=== PATIENT | female | born 1940 | race Caucasian/White ===

== ENCOUNTER 2017-11-02 21:28 | Observation (INO) | payer MEDICARE, OTHER ==
[~2017-11-02] VITALS: Ht 162.6 cm; Wt 124.0 kg
[~2017-11-02 21:28] MED LIST: ALLO100 PO; AMLO10 PO; ASPI81EC PO; Atrovent Inha12.9 GM INH; CHOL10002 PO; CLON.5 PO; COLE1 PO; COLE625 PO; CYAN1000I PO; CYCL10 PO; FEBU40TA PO; FENO160 PO; FURO40 PO; HYDACE5 PO; HYDCHL25 PO; LEVSOD50 PO; LIVALO4 MG PO; METF500 PO; Metoprolol Tar100 MG PO; NAPR500 PO; NAPR550 PO; Norco 5-325 Ta1 EACH PO; Omeprazole20 M1 PO; PIOG30 PO; POTASSIUM ER PO; POTCHL20ER PO; SITA100T2 PO; TRAZ50 PO; UBID100 PO; Zestril40 MG PO; [UNRECOGNIZED DRUG - OTHER] PO
[2017-11-02 22:42] LABS: BASOPHILS ABSOLUTE AUTO 0.05 K/mm3 (0.00-0.23); BASOPHILS PERCENT AUTO 1 % (0-2); EOSINOPHILS ABSOLUTE AUTO 0.17 K/mm3 (0.00-0.68); EOSINOPHILS PERCENT AUTO 3 % (0-6); Hematocrit 40.7 % (33.0-51.0); Hemoglobin 13.1 g/dL (11.5-16.0); IMMATURE GRAN ABSOLUTE AUTO 0.02 K/mm3 (0.00-0.10); IMMATURE GRAN PERCENT AUTO 0 % (0-1); LYMPHOCYTES ABSOLUTE AUTO 1.44 K/mm3 (0.84-5.20); LYMPHOCYTES PERCENT AUTO 25 % (21-46); MONOCYTES ABSOLUTE AUTO 0.41 K/mm3 (0.16-1.47); MONOCYTES PERCENT AUTO 7 % (4-13); Mean Corpuscular HGB 29.4 pg (26.0-34.0); Mean Corpuscular HGB Conc 32.2 g/dL (31.5-36.5); Mean Corpuscular Volume 92 fL (80-100); Mean Platelet Volume 10.8 fL (9.1-12.4); NEUTROPHILS PERCENT AUTO 63 % (41-73); Platelet Count 238 K/mm3 (150-400); RDW Coefficient Variation 12.9 % (11.7-14.2); RDW Standard Deviation 43.2 fL (35.1-46.3); Red Blood Cell Count 4.45 M/mm3 (3.80-5.20); White Blood Cell Count 5.69 K/mm3 (4.00-11.30)
[2017-11-02 22:54] LABS: Alanine Aminotransfer (ALT/SGP 22 U/L (12-78); Albumin, Blood 4.1 g/dL (3.4-5.0); Albumin/Globulin Ratio 1.1 (0.8-1.8); Alk Phos 66 U/L (50-136); Anion Gap 10 mmol/L (6-16); Aspartate Aminotrans (AST/SGOT 22 U/L (12-37); Bilirubin, Total 0.4 mg/dL (0.1-1.0); Blood Urea Nitrogen 13 mg/dL (8-24); Bun/Creatinine Ratio 23.3 (12.0-20.0); CO2, Blood 26 mmol/L (21-32); Calcium, Blood 9.4 mg/dL (8.5-10.1); Chloride, Blood 101 mmol/L (98-108); Creatinine, Blood 0.56 mg/dL (0.40-1.00); Globulin, Blood 3.9 g/dL (2.2-4.0); Glomerular Filtration Rate >60 (60-); Glucose, Blood 160 mg/dL (70-99); Potassium, Blood 3.8 mmol/L (3.5-5.5); Sodium, Blood 137 mmol/L (136-145)
[2017-11-03 03:30] LABS: Source, Urine Clean Catch
[2017-11-03 03:31] LABS: Bilirubin, Urine Neg (Neg); Blood, Urine Neg (Neg); Glucose Qualitative, Urine Neg (Neg); Ketones, Urine Neg (Neg); Leukocyte Esterase, Urine Neg (Neg); Nitrite, Urine Neg (Neg); Protein, Urine Neg (Neg); Urobilinogen, Urine NORM (Normal)
[2017-11-03 03:39] LABS: Appearance, Urine Clear (Clear); Color, Urine Yellow (P-Yellow)
[2017-11-03] MEDS ORDERED: ESCI10 PO (04:33)
[2017-11-03] MEDS ORDERED: Verotin-Gr Cap1 EACH PO (04:33)
[2017-11-03] MEDS ORDERED: CHOL10002 PO (04:34)
[2017-11-03] MEDS ORDERED: Fish Oil 10001000 MG PO (04:34)
[2017-11-03] MEDS ORDERED: UBID100 PO (04:35)
[2017-11-03] MEDS ORDERED: PROBIOTIC1 EAC6 PO (04:36)
[2017-11-03] MEDS ORDERED: GLUC500 PO (04:36)
[2017-11-03] MEDS ORDERED: GNP CALCIUM PO (04:37)
[2017-11-03 04:58] LABS: BASOPHILS ABSOLUTE AUTO 0.03 K/mm3 (0.00-0.23); BASOPHILS PERCENT AUTO 1 % (0-2); EOSINOPHILS ABSOLUTE AUTO 0.06 K/mm3 (0.00-0.68); EOSINOPHILS PERCENT AUTO 1 % (0-6); Hematocrit 39.6 % (33.0-51.0); Hemoglobin 12.9 g/dL (11.5-16.0); IMMATURE GRAN ABSOLUTE AUTO 0.02 K/mm3 (0.00-0.10); IMMATURE GRAN PERCENT AUTO 0 % (0-1); LYMPHOCYTES ABSOLUTE AUTO 1.21 K/mm3 (0.84-5.20); LYMPHOCYTES PERCENT AUTO 19 % (21-46); MONOCYTES ABSOLUTE AUTO 0.38 K/mm3 (0.16-1.47); MONOCYTES PERCENT AUTO 6 % (4-13); Mean Corpuscular HGB 29.6 pg (26.0-34.0); Mean Corpuscular HGB Conc 32.6 g/dL (31.5-36.5); Mean Corpuscular Volume 91 fL (80-100); Mean Platelet Volume 10.8 fL (9.1-12.4); NEUTROPHILS ABSOLUTE AUTO 4.57 K/mm3 (1.96-9.15); NEUTROPHILS PERCENT AUTO 73 % (41-73); Platelet Count 232 K/mm3 (150-400); RDW Coefficient Variation 12.8 % (11.7-14.2); RDW Standard Deviation 42.5 fL (35.1-46.3); Red Blood Cell Count 4.36 M/mm3 (3.80-5.20); White Blood Cell Count 6.27 K/mm3 (4.00-11.30)
[2017-11-03 05:16] LABS: Alanine Aminotransfer (ALT/SGP 22 U/L (12-78); Albumin/Globulin Ratio 1.1 (0.8-1.8); Alk Phos 64 U/L (50-136); Anion Gap 10 mmol/L (6-16); Aspartate Aminotrans (AST/SGOT 19 U/L (12-37); Bilirubin, Total 0.5 mg/dL (0.1-1.0); Blood Urea Nitrogen 13 mg/dL (8-24); Bun/Creatinine Ratio 21.9 (12.0-20.0); CO2, Blood 26 mmol/L (21-32); Calcium, Blood 9.4 mg/dL (8.5-10.1); Chloride, Blood 99 mmol/L (98-108); Creatinine, Blood 0.59 mg/dL (0.40-1.00); Globulin, Blood 3.7 g/dL (2.2-4.0); Glomerular Filtration Rate >60 (60-); Glucose, Blood 124 mg/dL (70-99); Potassium, Blood 4.1 mmol/L (3.5-5.5); Sodium, Blood 135 mmol/L (136-145); Total Protein, Blood 7.7 g/dL (6.4-8.2)
[2017-11-03] MEDS ORDERED: HYDMOR2 PO (17:15)
== END 2017-11-03 17:30 | disposition home or self-care (01) ==
LOC: ER 21:28 → MEDS 21:29 → ER 11-03 02:29 → MEDS 11-03 04:21 → ENPENDDIS 11-03 17:12 → MEDS 11-03 17:30
PROVIDERS: Emergency Medicine; Internal Medicine
DX: M25.561 Pain in right knee (principal); M54.5 Low back pain; G89.29 Other chronic pain; I10 Essential (primary) hypertension; E11.9 Type 2 diabetes mellitus without complications; E78.5 Hyperlipidemia, unspecified; E03.9 Hypothyroidism, unspecified; Z86.73 Personal history of transient ischemic attack (TIA), and cerebral infarction without residual deficits; Z79.899 Other long term (current) drug therapy; Z88.8 Allergy status to other drugs, medicaments and biological substances; Z90.49 Acquired absence of other specified parts of digestive tract; Z87.891 Personal history of nicotine dependence; Z79.82 Long term (current) use of aspirin; Z79.52 Long term (current) use of systemic steroids
CPT/HCPCS: 36415; 73502; 73562-RT; 80053; 81000; 81003; 82947; 85025; 93005; 93010; 93971; 94660; 94762; 96372; 96374; 96375; 96376; 99285; G0378; J1170; J1650; J1885; J2405; J2550; J3010; J3360

== ENCOUNTER → 2019-06-16 | Outpatient (CLI) | payer MEDICARE ==
[~2019-06-16] MED LIST changes: +ESCI10 PO; +Fish Oil 10001000 MG PO; +GLUC500 PO; +GNP CALCIUM PO; +HYDMOR2 PO; +PROBIOTIC1 EAC6 PO; +Verotin-Gr Cap1 EACH PO
[2019-06-16 22:11] LABS: Adenovirus F 40/41 Not Detected (NOT DETECT); Astrovirus Not Detected (NOT DETECT); Campylobacter Sp Not Detected (NOT DETECT); Cryptosporidium Not Detected (NOT DETECT); Cyclospora Cayetanensis Not Detected (NOT DETECT); E. Coli O157 Not Detected (NOT DETECT); Entamoeba Histolytica Not Detected (NOT DETECT); Enteroaggregative E. coli-EAEC Not Detected (NOT DETECT); Enteropathogenic E. coli-EPEC Not Detected (NOT DETECT); Enterotoxigenic E. coli-ETEC Not Detected (NOT DETECT); Giardia Lamblia Not Detected (NOT DETECT); Norovirus GI/GII Not Detected (NOT DETECT); Plesiomonas Shigelloides Not Detected (NOT DETECT); Rotavirus A Not Detected (NOT DETECT); Salmonella Sp Not Detected (NOT DETECT); Sapovirus Not Detected (NOT DETECT); Shiga Toxin-prod E. coli-STEC Not Detected (NOT DETECT); Shigella/Enteroin E. coli-EIEC Not Detected (NOT DETECT); Vibrio Cholerae Not Detected (NOT DETECT); Vibrio Sp Not Detected (NOT DETECT); Yersinia Enterocolitica Not Detected (NOT DETECT)
== END | disposition home or self-care (01) ==
LOC: LAB EV 02:02
PROVIDERS: Internal Medicine Gastroenterology
DX: R19.7 Diarrhea, unspecified (principal)
CPT/HCPCS: 0097U

== ENCOUNTER → 2021-06-24 | Outpatient (CLI) | payer MEDICARE ==
[2021-06-24 17:46] LABS: BASOPHILS ABSOLUTE AUTO 0.04 K/mm3 (0.00-0.23); BASOPHILS PERCENT AUTO 1 % (0-2); EOSINOPHILS ABSOLUTE AUTO 0.14 K/mm3 (0.00-0.68); EOSINOPHILS PERCENT AUTO 2 % (0-6); Hematocrit 33.1 % (33.0-51.0); Hemoglobin 10.4 g/dL (11.5-16.0); IMMATURE GRAN ABSOLUTE AUTO 0.04 K/mm3 (0.00-0.10); IMMATURE GRAN PERCENT AUTO 1 % (0-1); LYMPHOCYTES ABSOLUTE AUTO 1.48 K/mm3 (0.84-5.20); LYMPHOCYTES PERCENT AUTO 23 % (21-46); MONOCYTES ABSOLUTE AUTO 0.61 K/mm3 (0.16-1.47); MONOCYTES PERCENT AUTO 9 % (4-13); Mean Corpuscular HGB 29.6 pg (26.0-34.0); Mean Corpuscular HGB Conc 31.4 g/dL (31.5-36.5); Mean Corpuscular Volume 94 fL (80-100); Mean Platelet Volume 10.2 fL (9.1-12.4); NEUTROPHILS ABSOLUTE AUTO 4.28 K/mm3 (1.96-9.15); NEUTROPHILS PERCENT AUTO 65 % (41-73); Platelet Count 356 K/mm3 (150-400); RDW Standard Deviation 51.2 fL (35.1-46.3); Red Blood Cell Count 3.51 M/mm3 (3.80-5.20); White Blood Cell Count 6.59 K/mm3 (4.00-11.30)
== END | disposition home or self-care (01) ==
LOC: LAB 17:41 → LAB SHORT 17:41
PROVIDERS: Physician Assistant
DX: K92.1 Melena (principal)
CPT/HCPCS: 85025

== ENCOUNTER → 2021-06-26 | Outpatient (CLI) | payer MEDICARE ==
[2021-06-26 15:40] LABS: Hematocrit 32.1 % (33.0-51.0); Hemoglobin 10.2 g/dL (11.5-16.0)
== END ==
LOC: LAB SHORT 15:36
PROVIDERS: Chiropractor
DX: K92.1 Melena (principal); Z88.8 Allergy status to other drugs, medicaments and biological substances
CPT/HCPCS: 85014; 85018

== ENCOUNTER → 2023-11-23 | Outpatient (CLI) | payer MEDICARE ==
[~2023-11-23] MED LIST changes: +ACET325; +ALEN70; +ALLO100; +AMLO10; +ATOR40TA; +Aspir 8181 MG; +CATAPRES-TTS 21 EAC1; +CLONAZEPAM0.5 MG; +COLE625; +DICLOFENAC SOD100 G1; +ESCI10; +FERSU300; +FURO40; +HYDCHL25; +LEVSOD75; +METO50; +MULVITA; +Norco 5-325 Ta1 EACH; +OMEP20ER; +Oxybutynin Chlo15 MG; +PIOG30; +POTA10T; +SITA100T2; +TRAZ100; +ZESTRIL40 M2
[2023-11-25 12:19] LABS: Stool Occult Bld Immuno 1 Positive (NEGATIVE)
== END | disposition home or self-care (01) ==
LOC: LAB SHORT 22:30
PROVIDERS: Family Medicine
DX: Z12.11 Encounter for screening for malignant neoplasm of colon (principal)
CPT/HCPCS: G0328

== ENCOUNTER 2025-02-20 13:58 | Inpatient (IN) | payer MEDICARE ==
[~2025-02-20] VITALS: Ht 162.6 cm; Wt 107.0 kg
[~2025-02-20 13:58] MED LIST changes: -ALLO100; -AMLO10; -ATOR40TA; +ATOR80 PO; -CLONAZEPAM0.5 MG; +CLONAZEPAM0.5 MG PO; -COLE625; -ESCI10; -FURO40; -Oxybutynin Chlo15 MG; +Oxybutynin Chlo15 MG PO; -PIOG30; -ZESTRIL40 M2; +ZESTRIL40 M2 PO
[2025-02-20 14:21] VITALS: BP 139/119
[2025-02-20] MEDS ORDERED: Ondansetron 4 MG TAB PO PRN (14:25)
[2025-02-20] MEDS ORDERED: Furosemide 10 MG/ML 4ML Vial IV SCH (15:00)
[2025-02-20] MEDS ORDERED: ELIQUIS5 M2 PO (15:02)
[2025-02-20] MEDS ORDERED: LEVOTHYROXINE100 M10 PO (15:05)
[2025-02-20] MEDS ORDERED: METO100ER PO (15:07)
[2025-02-20] MEDS ORDERED: TIOT18 INH (15:09)
[2025-02-20 15:20] LABS: BASOPHILS ABSOLUTE AUTO 0.04 K/mm3 (0.00-0.23); BASOPHILS PERCENT AUTO 0 % (0-2); EOSINOPHILS ABSOLUTE AUTO 0.01 K/mm3 (0.00-0.68); EOSINOPHILS PERCENT AUTO 0 % (0-6); Hematocrit 45.8 % (33.0-51.0); Hemoglobin 14.2 g/dL (11.5-16.0); IMMATURE GRAN ABSOLUTE AUTO 0.04 K/mm3 (0.00-0.10); IMMATURE GRAN PERCENT AUTO 0 % (0-1); LYMPHOCYTES ABSOLUTE AUTO 0.68 K/mm3 (0.84-5.20); LYMPHOCYTES PERCENT AUTO 8 % (21-46); MONOCYTES ABSOLUTE AUTO 1.09 K/mm3 (0.16-1.47); MONOCYTES PERCENT AUTO 12 % (4-13); Mean Corpuscular HGB 27.1 pg (26.0-34.0); Mean Corpuscular Volume 87 fL (80-100); Mean Platelet Volume 11.2 fL (9.1-12.4); NEUTROPHILS ABSOLUTE AUTO 7.25 K/mm3 (1.96-9.15); NEUTROPHILS PERCENT AUTO 80 % (41-73); Platelet Count 213 K/mm3 (150-400); RDW Coefficient Variation 18.8 % (11.7-14.2); RDW Standard Deviation 59.2 fL (35.1-46.3); Red Blood Cell Count 5.24 M/mm3 (3.80-5.20); White Blood Cell Count 9.11 K/mm3 (4.00-11.30)
[2025-02-20 15:27] VITALS: BP 133/105
[2025-02-20 16:03] LABS: Albumin, Blood 2.6 g/dL (3.4-5.0); Albumin/Globulin Ratio 0.6 (0.8-1.8); Bilirubin, Total 1.5 mg/dL (0.1-1.0); Bun/Creatinine Ratio 30.4 (12.0-20.0); Calcium, Blood 8.7 mg/dL (8.5-10.1); Creatinine, Blood 0.56 mg/dL (0.40-1.00); Globulin, Blood 4.4 g/dL (2.2-4.0); Magnesium, Blood 1.5 mg/dL (1.6-2.4); Potassium, Blood 3.6 mmol/L (3.5-5.5); Thyroid Stimulating Hormone 7.53 uIU/mL (0.360-4.800)
--- NOTE | 2025-02-20 16:56 | NUR ---
ADMISSION NOTE PATIENT ARRIVED TO UNIT DIRECT ADMIT WITH ANASARCA. PATIENT'S SON, JUAN, ASSISTED PATIENT TO BED FROM WHEELCHAIR. PATIENT FOUL-SMELLING WITH POOR HYGIENE. INCONTINENT OF BOWEL AND BLADDER WITH TWO BRIEFS IN PLACE UPON ARRIVAL BOTH SATURATED. DRIED BOWEL MOVEMENT FOUND TO PATIENT'S PANNUS, GROIN, AND BILATERAL LOWER EXTREMITIES. SKIN ASSESSMENT COMPLETED AND STAGE 2 PRESSURE INJURY FOUND TO COCCYX AND MACERATION AND MULTIPLE OPEN WOUNDS TO PERINEAL AREA DUE TO MOISTURE. SCATTERED ABRASIONS T/O, ABRASIONS TO LEFT SIDED ABDOMEN AND FACE. DR. CHERRY NOTIFIED OF PRESSURE INJURY. THIS RN CONCERNED WITH PATIENT'S ABILITY TO TAKE CARE OF HERSELF AT HOME, PATIENT LIVES ALONE. IV PLACED BY BREAK NURSE TO RIGHT FA, DIFFICULTY OBTAINING IV TO PATIENT UPON ARRIVAL. IV LASIX ADMINISTERED LATE DUE TO DIFFICULTY OBTAINING IV. PATIENT'S GRANDDAUGHTER AT BEDSIDE CURRENTLY. NO OTHER CONCERNS AT THIS TIME.
[2025-02-20 19:17] VITALS: BP 126/81
[2025-02-20] MEDS ORDERED: ZINC OXIDE/PETROLATUM, YELLOW 1 APPLIC/71 GM PASTE TOP SCH (21:00)
--- NOTE | 2025-02-21 04:04 | NUR ---
SHIFT SUMMARY NO ACUTE EVENTS DURING THIS SHIFT. PT IS A/O X4, PLEASANT AND COOPERATIVE WITH CARE. PUREWICK WAS ADMINISTERED DURING THIS SHIFT D/T REDDNESS AND MOISTURE IN AVRIL AREA. STAGE II PRESSURE INJURY @ COCCYX AREA. MEPILEX PLACED ON COCCYX, CHET OINTMENT AND BABY POWDER ADMINISTERED TO AVRIL AREA. LEFT HIP HAS A C/D/I ABD PAD SECURED WITH A TAPE PER PREVIOUS SHIFT RN. PICTURES IN THE CHART. PT'S FACE IS REDDENED, BLOTCHY WITH DRY SKIN. PANNUS AND GROIN ALSO REDDENED. INCONTINENT OF BOWEL AND URINE. ATTENDS IN PLACE. BED AT THE LOWEST POSITION, CALL LIGHT W/I REACH. PT IS ABLE TO MAKE HER NEEDS KNOWN. EDUCATED LOBBY CONCIERGE LIGHT. BED ALARM FOR SAFETY.
[2025-02-21 04:25] VITALS: BP 121/90
[2025-02-21 04:42] LABS: BASOPHILS ABSOLUTE AUTO 0.03 K/mm3 (0.00-0.23); BASOPHILS PERCENT AUTO 0 % (0-2); EOSINOPHILS ABSOLUTE AUTO 0.05 K/mm3 (0.00-0.68); EOSINOPHILS PERCENT AUTO 1 % (0-6); Hematocrit 38.4 % (33.0-51.0); Hemoglobin 12.1 g/dL (11.5-16.0); IMMATURE GRAN ABSOLUTE AUTO 0.03 K/mm3 (0.00-0.10); IMMATURE GRAN PERCENT AUTO 0 % (0-1); LYMPHOCYTES PERCENT AUTO 15 % (21-46); MONOCYTES ABSOLUTE AUTO 0.92 K/mm3 (0.16-1.47); MONOCYTES PERCENT AUTO 14 % (4-13); Mean Corpuscular HGB 27.3 pg (26.0-34.0); Mean Corpuscular HGB Conc 31.5 g/dL (31.5-36.5); Mean Corpuscular Volume 87 fL (80-100); Mean Platelet Volume 11.6 fL (9.1-12.4); NEUTROPHILS ABSOLUTE AUTO 4.67 K/mm3 (1.96-9.15); NEUTROPHILS PERCENT AUTO 70 % (41-73); Platelet Count 197 K/mm3 (150-400); RDW Coefficient Variation 18.8 % (11.7-14.2); Red Blood Cell Count 4.44 M/mm3 (3.80-5.20)
[2025-02-21 05:04] LABS: Alanine Aminotransfer (ALT/SGP 11 U/L (12-78); Albumin, Blood 2.2 g/dL (3.4-5.0); Albumin/Globulin Ratio 0.6 (0.8-1.8); Alk Phos 116 U/L (50-136); Anion Gap 5 mmol/L (3-11); Aspartate Aminotrans (AST/SGOT 17 U/L (12-37); Bilirubin, Total 1.3 mg/dL (0.1-1.0); Blood Urea Nitrogen 15 mg/dL (8-24); Bun/Creatinine Ratio 22.8 (12.0-20.0); CO2, Blood 32 mmol/L (21-32); Calcium, Blood 8.4 mg/dL (8.5-10.1); Chloride, Blood 103 mmol/L (98-108); Cholesterol 75 mg/dL (50-200); Creatinine, Blood 0.66 mg/dL (0.40-1.00); Globulin, Blood 3.4 g/dL (2.2-4.0); Glomerular Filtration Rate 86 (60-); Glucose, Blood 89 mg/dL (70-99); HDL Cholesterol 38 mg/dL (>39); LDL/HDL RATIO 0.6; Low Density Lipoprotein Chol 22 mg/dL (0-110); Magnesium, Blood 1.3 mg/dL (1.6-2.4); Potassium, Blood 3.2 mmol/L (3.5-5.5); Sodium, Blood 137 mmol/L (136-145); Total Protein, Blood 5.6 g/dL (6.4-8.2); Triglycerides 75 mg/dL (30-160); Very Low Density Lipoprot Chol 15 mg/dL (6-32)
[2025-02-21 07:29] VITALS: BP 142/103
[2025-02-21] MEDS ORDERED: Enoxaparin 40 MG/0.4 ML SYR SC SCH ×2 (09:00)
[2025-02-21] MEDS ORDERED: Potassium Chloride 20 MEQ TabCR PO SCH (09:35)
[2025-02-21] MEDS ORDERED: Arginine/Glutamine/Calcium Hmb 1 Packet PO SCH (11:55)
[2025-02-21 15:08] VITALS: BP 118/76
--- NOTE | 2025-02-21 18:36 | NUR ---
SHIFT SUMMARY PT AOX3/4, COOPERATIVE, ABLE TO MAKE NEEDS KNOWN. PT HAS BEEN BEDREST FOR DURATION OF SHIFT. 4+ PITTING EDEMA LOWER EXTREMITIES. ON 2000ML FLUID RESTICTION, LICENSED FUNERAL DIRECTOR CHARTING SHOULD REFLECT. ON 3/4 L O2 CURRENLTY. TAKES MEDS WHOLE WITH FLUIDS. BED IN LOWEST POSITION, CALL LIGHT WITHIN REACH.
[2025-02-21 20:26] VITALS: BP 127/114
[2025-02-21 20:31] VITALS: BP 116/82
[2025-02-22 03:02] VITALS: BP 119/94
--- NOTE | 2025-02-22 04:47 | NUR ---
SHIFT SUMMARY: ASSUMED CARE AT 0030 FROM MARY ANN OLIVA. AOX4. VSS. PT IS BEDBOUND, USING PUREWICK FOR INCONTINENCE. +4 EDEMA NOTED TO BLE. WOUND DRESSING TO L HIP. ABRASION TO R HIP COVERED BY A MEPILEX. STAGE 2 PRESSURE ULCER TO COCCYX COVERED WITH A MEPILEX. REDNESS TO PERIAREA, APPLIED BARRIER CREAM AND POWDER. CALL LIGHT IS WITHIN REACH. BED IS LOW AND LOCKED.
[2025-02-22 05:02] LABS: Albumin, Blood 2.5 g/dL (3.4-5.0); Albumin/Globulin Ratio 0.7 (0.8-1.8); Bilirubin, Total 1.2 mg/dL (0.1-1.0); Bun/Creatinine Ratio 26.1 (12.0-20.0); Calcium, Blood 8.5 mg/dL (8.5-10.1); Creatinine, Blood 0.77 mg/dL (0.40-1.00); Globulin, Blood 3.8 g/dL (2.2-4.0); Magnesium, Blood 1.2 mg/dL (1.6-2.4); Total Protein, Blood 6.3 g/dL (6.4-8.2)
[2025-02-22] MEDS ORDERED: Tiotropium Bromide 2.5 MCG/ACT MIST INHAL (10 ACT/4 GM) INH SCH (07:00)
[2025-02-22] MEDS ORDERED: Magnesium Sulf 2 GM/Water 50ML 50 ML IV ONE (07:15)
[2025-02-22 07:47] LABS: Bun/Creatinine Ratio 24.9 (12.0-20.0); Calcium, Blood 8.8 mg/dL (8.5-10.1); Creatinine, Blood 0.76 mg/dL (0.40-1.00)
[2025-02-22 07:49] VITALS: BP 129/109
[2025-02-22] MEDS ORDERED: NS 250 ML IV PRN (08:15)
[2025-02-22 08:31] VITALS: BP 126/98
[2025-02-22] MEDS ORDERED: Apixaban 5 MG Tab PO SCH (09:00)
[2025-02-22] MEDS ORDERED: Pioglitazone HCl 15 MG Tab PO SCH (09:00)
[2025-02-22] MEDS ORDERED: Allopurinol 100 MG Tab PO SCH (09:00)
[2025-02-22] MEDS ORDERED: Citalopram Hydrobromide 20 MG Tab PO SCH (09:00)
[2025-02-22] MEDS ORDERED: Zinc Oxide Ointment 30 GM TOP SCH (09:00)
--- NOTE | 2025-02-22 14:15 | NUR ---
SHIFT SUMMARY- PT ALERT AND ORIENTED, POOR HISTORIAN. SHE HAS INCREASED WEAKNESS AND SKIN IRRITATION T/O AVRIL AREA D/T INCONTINENCE OF B/B. PT IS IN BED, CALL LIGT IN REACH NO S&S OF DISTRESS NOTED. PT IS WORKING WITH PHYSICAL THERAPY AT THIS TIME. WILL PASS ON IN REPORT TO MIRANDA KWONG.
--- NOTE | 2025-02-22 15:34 | NUR ---
SHIFT SUMMARY: PATIENT IS A&OX4 ON 4 LITERS NASAL CANNULA. PATIENT IS 2 PERSON SIT TO STAND, UNABLE TO PIVOT TRANSFER, NO BEDSIDE COOMODE AT THIS TIME DUE TO WEAKNESS, ABLE TO SIT ON EDGE OF BED PER THERAPY, ANALYTICS LEADER'S TRANSFERED TO BEDSIDE COMMODE FOR BM AFTER BED BATH. MEPILEX CHANGED ON COCCYX, BANDAGE CHANGED ON LEFT HIP. PATIENT IS CURRENTLY SLEEPING IN BED, NO REPORTS OF CHEST PAIN OR DISCOMFORT, BREATHING IS NORMAL AND NOT LABORED. CALL LIGHT IN PLACE.
[2025-02-22 15:43] VITALS: BP 107/85
[2025-02-22] MEDS ORDERED: BREO ELLIPTA 21 EAC1 INH (16:54)
[2025-02-22] MEDS ORDERED: Atorvastatin 40 MG Tab PO SCH (18:00)
--- NOTE | 2025-02-22 19:28 | NUR ---
ASSUMED CARE OF PT FROM SHONA Dunn. A/O NO C/O PAIN DRESSINGS TO BACK AND HIP CHANGED AND ARE NOW C/D/I. PT WAS ASSISTED TO BSC AND JASON WELL. STUDENT TO ASSIST IN CARE. CALL LIGHT WITHIN REACH.
[2025-02-22 20:17] VITALS: BP 118/77
[2025-02-23 03:02] VITALS: BP 105/86
[2025-02-23 04:47] LABS: BASOPHILS ABSOLUTE AUTO 0.03 K/mm3 (0.00-0.23); BASOPHILS PERCENT AUTO 1 % (0-2); EOSINOPHILS PERCENT AUTO 2 % (0-6); Hematocrit 38.1 % (33.0-51.0); Hemoglobin 12.5 g/dL (11.5-16.0); IMMATURE GRAN ABSOLUTE AUTO 0.03 K/mm3 (0.00-0.10); IMMATURE GRAN PERCENT AUTO 1 % (0-1); LYMPHOCYTES ABSOLUTE AUTO 1.26 K/mm3 (0.84-5.20); LYMPHOCYTES PERCENT AUTO 21 % (21-46); MONOCYTES ABSOLUTE AUTO 0.96 K/mm3 (0.16-1.47); MONOCYTES PERCENT AUTO 16 % (4-13); Mean Corpuscular HGB 27.5 pg (26.0-34.0); Mean Corpuscular HGB Conc 32.8 g/dL (31.5-36.5); Mean Corpuscular Volume 84 fL (80-100); Mean Platelet Volume 10.9 fL (9.1-12.4); NEUTROPHILS PERCENT AUTO 60 % (41-73); Platelet Count 229 K/mm3 (150-400); RDW Coefficient Variation 18.6 % (11.7-14.2); RDW Standard Deviation 56.7 fL (35.1-46.3); Red Blood Cell Count 4.55 M/mm3 (3.80-5.20); White Blood Cell Count 5.88 K/mm3 (4.00-11.30)
[2025-02-23 05:08] LABS: Albumin, Blood 2.4 g/dL (3.4-5.0); Albumin/Globulin Ratio 0.7 (0.8-1.8); Bun/Creatinine Ratio 36.5 (12.0-20.0); Creatinine, Blood 0.68 mg/dL (0.40-1.00); Globulin, Blood 3.6 g/dL (2.2-4.0); Magnesium, Blood 1.5 mg/dL (1.6-2.4); Potassium, Blood 3.7 mmol/L (3.5-5.5)
[2025-02-23] MEDS ORDERED: Levothyroxine Sodium 0.1 MG Tab PO SCH (06:00)
--- NOTE | 2025-02-23 06:18 | NUR ---
SHIFT SUMMARY PT SLEPT INTERMITTENTLY DURING THE NIGHT. PUREWICK REMOVED DUE TO INCONT SMALL LOOSE STOOL. MEPELEX INTACT TO COCCYX AND DRESSING INTACT TO LEFT HIP. PERIAREA REMAINS REDENNED, CREAM AND POWDER APPLIED NEEDED. PT REPOSITIONED THROUGH THE NIGHT. EDEMA CONTINUES- 4+PE L[facility] CHIEF EXECUTIVE OFFICER GENERALIZED EDEMA. BED IN LOWEST POSITION, CALL LIGHT WITHIN REACH, SIDERAILS UP X3.
[2025-02-23 08:08] VITALS: BP 113/89
[2025-02-23 16:29] VITALS: BP 104/89
--- NOTE | 2025-02-23 17:39 | NUR ---
NO CHANGES FOR PT
[2025-02-23 19:47] VITALS: BP 109/73
[2025-02-24 02:32] VITALS: BP 120/96
[2025-02-24 04:52] LABS: BASOPHILS ABSOLUTE AUTO 0.02 K/mm3 (0.00-0.23); BASOPHILS PERCENT AUTO 0 % (0-2); EOSINOPHILS ABSOLUTE AUTO 0.09 K/mm3 (0.00-0.68); EOSINOPHILS PERCENT AUTO 2 % (0-6); Hematocrit 36.2 % (33.0-51.0); Hemoglobin 11.7 g/dL (11.5-16.0); IMMATURE GRAN ABSOLUTE AUTO 0.05 K/mm3 (0.00-0.10); IMMATURE GRAN PERCENT AUTO 1 % (0-1); LYMPHOCYTES ABSOLUTE AUTO 1.09 K/mm3 (0.84-5.20); LYMPHOCYTES PERCENT AUTO 18 % (21-46); MONOCYTES ABSOLUTE AUTO 0.99 K/mm3 (0.16-1.47); MONOCYTES PERCENT AUTO 16 % (4-13); Mean Corpuscular HGB 27.3 pg (26.0-34.0); Mean Corpuscular HGB Conc 32.3 g/dL (31.5-36.5); Mean Corpuscular Volume 84 fL (80-100); Mean Platelet Volume 11.3 fL (9.1-12.4); NEUTROPHILS ABSOLUTE AUTO 3.84 K/mm3 (1.96-9.15); NEUTROPHILS PERCENT AUTO 63 % (41-73); Platelet Count 231 K/mm3 (150-400); RDW Coefficient Variation 18.6 % (11.7-14.2); RDW Standard Deviation 57.3 fL (35.1-46.3); Red Blood Cell Count 4.29 M/mm3 (3.80-5.20); White Blood Cell Count 6.08 K/mm3 (4.00-11.30)
[2025-02-24 05:13] LABS: Bun/Creatinine Ratio 34.7 (12.0-20.0); Calcium, Blood 8.8 mg/dL (8.5-10.1); Creatinine, Blood 0.78 mg/dL (0.40-1.00); Potassium, Blood 3.6 mmol/L (3.5-5.5)
[2025-02-24 05:16] LABS: Albumin, Blood 2.2 g/dL (3.4-5.0); Albumin/Globulin Ratio 0.6 (0.8-1.8); Bilirubin, Total 0.8 mg/dL (0.1-1.0); Bun/Creatinine Ratio 36.9 (12.0-20.0); Calcium, Blood 8.8 mg/dL (8.5-10.1); Creatinine, Blood 0.76 mg/dL (0.40-1.00); Globulin, Blood 3.6 g/dL (2.2-4.0); Magnesium, Blood 1.5 mg/dL (1.6-2.4); Potassium, Blood 3.6 mmol/L (3.5-5.5); Total Protein, Blood 5.8 g/dL (6.4-8.2)
--- NOTE | 2025-02-24 05:30 | NUR ---
SHIFT SUMMARY PT SLEPT INTERMITTENTLY DURING THE NIGHT. SCD'S CHANGED TO JAREN WRAPS PER DR ORDER. PT CONTINUES TO BE INCONT OF URINE AND STOOL- PUREWICK REMOVED DUE TO STOOL INCONTINENCE. PT CHANGED AND REPOSITIONED DURING THE NIGHT. PERICARE PROVIDED AND MEPELEX CHANGED. MEDICATED ZINC CREAM APPLIED TO REDENNED AVRIL AREA AND FOLDS. DRESSING TO LEFT HIP IS C/D/I. BED IN LOWEST POSITION, CALL LIGHT WITHIN REACH, SIDERAILS UP X2.
[2025-02-24 07:14] VITALS: BP 139/92
[2025-02-24] MEDS ORDERED: Magnesium Sulf 2 GM/Water 50ML 50 ML IV STA (13:15)
[2025-02-24] MEDS ORDERED: Potassium Chloride 20 MEQ TabCR PO ONE (14:00)
[2025-02-24 16:06] VITALS: BP 114/75
--- NOTE | 2025-02-24 18:47 | NUR ---
SHIFT SUMMARY PT IS A/OX4. 1-2 PERSON ASSIST TO BSC/CHAIR. NO ACUTE CHANGES THROUGHOUT THIS SHIFT. ON 4L NC AT THE START OF THIS SHIFT, PT IS CURRENTLY ON 3L NC WHICH SHE REPORTS HER BASELINE. WOUND CARE TO COCCYX AND LEFT HIP COMPLETED PER ORDERS. FAMILY AT BEDSIDE THIS EVENING. PT IS PLEASANT AND COOPERATIVE WITH CARE AND CALLS APPROPRIATELY USING THE CALL LIGHT.
[2025-02-24 19:40] VITALS: BP 98/64
[2025-02-25 02:31] VITALS: BP 116/81
[2025-02-25 04:54] LABS: BASOPHILS ABSOLUTE AUTO 0.03 K/mm3 (0.00-0.23); BASOPHILS PERCENT AUTO 1 % (0-2); EOSINOPHILS ABSOLUTE AUTO 0.11 K/mm3 (0.00-0.68); EOSINOPHILS PERCENT AUTO 2 % (0-6); Hematocrit 36.6 % (33.0-51.0); Hemoglobin 11.6 g/dL (11.5-16.0); IMMATURE GRAN ABSOLUTE AUTO 0.04 K/mm3 (0.00-0.10); IMMATURE GRAN PERCENT AUTO 1 % (0-1); LYMPHOCYTES ABSOLUTE AUTO 1.14 K/mm3 (0.84-5.20); LYMPHOCYTES PERCENT AUTO 18 % (21-46); MONOCYTES ABSOLUTE AUTO 1.05 K/mm3 (0.16-1.47); MONOCYTES PERCENT AUTO 16 % (4-13); Mean Corpuscular HGB 27.3 pg (26.0-34.0); Mean Corpuscular HGB Conc 31.7 g/dL (31.5-36.5); Mean Corpuscular Volume 86 fL (80-100); Mean Platelet Volume 11.1 fL (9.1-12.4); NEUTROPHILS ABSOLUTE AUTO 4.12 K/mm3 (1.96-9.15); NEUTROPHILS PERCENT AUTO 63 % (41-73); Platelet Count 224 K/mm3 (150-400); RDW Coefficient Variation 18.8 % (11.7-14.2); RDW Standard Deviation 58.2 fL (35.1-46.3); Red Blood Cell Count 4.25 M/mm3 (3.80-5.20); White Blood Cell Count 6.49 K/mm3 (4.00-11.30)
[2025-02-25 05:17] LABS: Bun/Creatinine Ratio 46.9 (12.0-20.0); Calcium, Blood 8.9 mg/dL (8.5-10.1); Creatinine, Blood 0.66 mg/dL (0.40-1.00); Potassium, Blood 3.9 mmol/L (3.5-5.5)
[2025-02-25 05:19] LABS: Magnesium, Blood 1.6 mg/dL (1.6-2.4); Phosphorus, Blood 2.9 mg/dL (2.5-4.9)
--- NOTE | 2025-02-25 05:42 | NUR ---
SHIFT SUMMARY PT SLEPT LONG INTERVALS THROUGH THE NIGHT. LEGS WRAPPED WITH JAREN WRAPS FOR SWELLING PER ORDER. 2 ASSIST WITH FWW FROM CHAIR TO BED. PT TURNED AND REPOSITIONED DURING THE NIGHT. CONTINUES TO BE INCONT OF BOWEL AND BLADDER. MEPELEX INTACT TO SACRUM AND DRESSING INTACT TO LEFT HIP. BED IN LOWEST POSITION, CALL LIGHT WITHIN REACH, SIDERAILS UP X2.
[2025-02-25 07:59] VITALS: BP 113/65
--- NOTE | 2025-02-25 10:00 | NUR ---
DRESSINGS TO THE COCCYX, AVRIL AREA, AND LEFT HIP ABRASION CHANGED PER WOUND CARE ORDERS. UPDATED PICTURES TAKEN AND PLACED IN THE CHART.
[2025-02-25 15:39] VITALS: BP 120/88
[2025-02-25] MEDS ORDERED: Magnesium Sulf 2 GM/Water 50ML 50 ML IV STA (16:02)
--- NOTE | 2025-02-25 19:07 | NUR ---
SHIFT SUMMARY PT IS A/OX4. NO ACUTE CHANGES THROUGHOUT THIS SHIFT. CONTINUE DIURESIS. PT IS 1-2 PERSON ASSIST WITH FWW, UP TO CHAIR FOR MEALS. ON 3L N, WHICH PT REPORTS IS HER BASELINE. PT IS INCONT OF BLADDER AND BOWELS, ATTENDS IN PLACE AND CHANGES NEEDED. DRESSINGS TO COCCYX AND LEFT HIP CHANGED THIS SHIFT. REPEAT PICTURES TAKEN AND PLACED IN CHART. PT IS PLEASANT AND COOPERATIVE WITH CARE AND CALLS APPROPRIATELY USING THE CALL LIGHT.
[2025-02-25 19:13] VITALS: BP 102/70
[2025-02-26 04:24] VITALS: BP 115/80
--- NOTE | 2025-02-26 05:34 | NUR ---
SHIFT SUMMARY PT SLEPT INTERMITTENTLY DURING THE NIGHT. CONTINUES TO BE INCONT OF BLADDER AND BOWEL- BRIEF CHANGE WITH AVRIL CARE NEEDED. PT TURNED AND REPOSITIONED DURING THE NIGHT. MEPELEX INTACT TO COCCYX AND DRESSING INTACT TO LEFT HIP. JAREN WRAPS REWRAPPED TO LORENZA. LE'S. EDEMA IS IMPROVING. BED IN LOWEST POSITION, CALL LIGHT WITHIN REACH, SIDERAILS UP X2.
[2025-02-26 07:18] LABS: BASOPHILS ABSOLUTE AUTO 0.03 K/mm3 (0.00-0.23); BASOPHILS PERCENT AUTO 1 % (0-2); EOSINOPHILS ABSOLUTE AUTO 0.15 K/mm3 (0.00-0.68); EOSINOPHILS PERCENT AUTO 2 % (0-6); Hematocrit 37.1 % (33.0-51.0); Hemoglobin 11.7 g/dL (11.5-16.0); IMMATURE GRAN ABSOLUTE AUTO 0.03 K/mm3 (0.00-0.10); IMMATURE GRAN PERCENT AUTO 1 % (0-1); LYMPHOCYTES ABSOLUTE AUTO 1.05 K/mm3 (0.84-5.20); LYMPHOCYTES PERCENT AUTO 17 % (21-46); MONOCYTES ABSOLUTE AUTO 0.93 K/mm3 (0.16-1.47); MONOCYTES PERCENT AUTO 15 % (4-13); Mean Corpuscular HGB 27.3 pg (26.0-34.0); Mean Corpuscular HGB Conc 31.5 g/dL (31.5-36.5); Mean Corpuscular Volume 87 fL (80-100); Mean Platelet Volume 11.1 fL (9.1-12.4); NEUTROPHILS ABSOLUTE AUTO 3.96 K/mm3 (1.96-9.15); NEUTROPHILS PERCENT AUTO 64 % (41-73); Platelet Count 238 K/mm3 (150-400); RDW Standard Deviation 59.4 fL (35.1-46.3); Red Blood Cell Count 4.28 M/mm3 (3.80-5.20); White Blood Cell Count 6.15 K/mm3 (4.00-11.30)
[2025-02-26 07:29] VITALS: BP 121/82
[2025-02-26 07:36] LABS: Bun/Creatinine Ratio 46.6 (12.0-20.0); Calcium, Blood 9.3 mg/dL (8.5-10.1); Creatinine, Blood 0.67 mg/dL (0.40-1.00); Magnesium, Blood 1.8 mg/dL (1.6-2.4); Phosphorus, Blood 3.6 mg/dL (2.5-4.9); Potassium, Blood 3.7 mmol/L (3.5-5.5)
[2025-02-26 15:28] VITALS: BP 102/92
[2025-02-26 19:31] VITALS: BP 125/73
[2025-02-27 02:28] VITALS: BP 123/80
[2025-02-27 04:54] LABS: BASOPHILS ABSOLUTE AUTO 0.02 K/mm3 (0.00-0.23); BASOPHILS PERCENT AUTO 0 % (0-2); EOSINOPHILS ABSOLUTE AUTO 0.14 K/mm3 (0.00-0.68); EOSINOPHILS PERCENT AUTO 2 % (0-6); Hematocrit 35.5 % (33.0-51.0); Hemoglobin 11.4 g/dL (11.5-16.0); IMMATURE GRAN ABSOLUTE AUTO 0.02 K/mm3 (0.00-0.10); IMMATURE GRAN PERCENT AUTO 0 % (0-1); LYMPHOCYTES PERCENT AUTO 19 % (21-46); MONOCYTES ABSOLUTE AUTO 0.86 K/mm3 (0.16-1.47); MONOCYTES PERCENT AUTO 15 % (4-13); Mean Corpuscular HGB 27.3 pg (26.0-34.0); Mean Corpuscular HGB Conc 32.1 g/dL (31.5-36.5); Mean Corpuscular Volume 85 fL (80-100); Mean Platelet Volume 10.6 fL (9.1-12.4); NEUTROPHILS ABSOLUTE AUTO 3.65 K/mm3 (1.96-9.15); NEUTROPHILS PERCENT AUTO 63 % (41-73); Platelet Count 232 K/mm3 (150-400); RDW Coefficient Variation 19.2 % (11.7-14.2); Red Blood Cell Count 4.17 M/mm3 (3.80-5.20); White Blood Cell Count 5.79 K/mm3 (4.00-11.30)
[2025-02-27 05:19] LABS: Magnesium, Blood 1.8 mg/dL (1.6-2.4); Phosphorus, Blood 3.6 mg/dL (2.5-4.9)
--- NOTE | 2025-02-27 06:42 | NUR ---
VSS, A&O X4, ON 2LPM O2 SUPP, STILL ON DIURESE TX, WITH IV ON R HAND ACCIDENTALLY DISLODGED, FOR RECANNULATION, STILL HAVE LOOSE STOOLS, INCONTINENT OF URINE AND SOILED WOUND DRESSING AT POSTERIOR LEFT WOUND AND REDRESSED ASEPTICALLY, ABLE TO SLEEP WELL BUT UNABLE TO TITRATE DOWN O2 DUE TO ANTONIO CONDITION AT NIGHT, ABLE TO REST WELL AT NIGHT W/O ANY COMPLAINT OR DISTRESS.
[2025-02-27 07:51] VITALS: BP 115/81
[2025-02-27] MEDS ORDERED: Mometasone/Formoterol MDI 200/5 mcg 13 GM INH SCH (10:45)
[2025-02-27 15:52] VITALS: BP 124/90
--- NOTE | 2025-02-27 17:41 | NUR ---
PT WAS DISCHARGED TO [facility]. THIS NURSE GAVE REPORT TO RASHMI. PT HAS NO QUESTIONS OR COCNERNS
[2025-03-13] MEDS ORDERED: JUVEN PACKET1 EAC3 PO (12:55)
[2025-03-13] MEDS ORDERED: BISA10S PR (12:55)
== END 2025-02-27 17:20 | DRG 291 ==
LOC: MEDS 13:58
PROVIDERS: ADMIT Internal Medicine
DX: I11.0 Hypertensive heart disease with heart failure (principal); I50.43 Acute on chronic combined systolic (congestive) and diastolic (congestive) heart failure; J96.21 Acute and chronic respiratory failure with hypoxia; I31.39 Other pericardial effusion (noninflammatory); Z68.41 Body mass index [BMI] 40.0-44.9, adult; E83.42 Hypomagnesemia; E87.6 Hypokalemia; E11.42 Type 2 diabetes mellitus with diabetic polyneuropathy; E11.319 Type 2 diabetes mellitus with unspecified diabetic retinopathy without macular edema; M81.0 Age-related osteoporosis without current pathological fracture; N39.46 Mixed incontinence; R15.9 Full incontinence of feces; M51.369 Other intervertebral disc degeneration, lumbar region without mention of lumbar back pain or lower extremity pain; F41.9 Anxiety disorder, unspecified; F32.A Depression, unspecified; G47.33 Obstructive sleep apnea (adult) (pediatric); G47.00 Insomnia, unspecified; I48.91 Unspecified atrial fibrillation; E78.5 Hyperlipidemia, unspecified; M10.9 Gout, unspecified; E03.9 Hypothyroidism, unspecified; N32.81 Overactive bladder; I35.0 Nonrheumatic aortic (valve) stenosis; L89.152 Pressure ulcer of sacral region, stage 2; E11.59 Type 2 diabetes mellitus with other circulatory complications; E66.01 Morbid (severe) obesity due to excess calories; L89.891 Pressure ulcer of other site, stage 1; Z88.8 Allergy status to other drugs, medicaments and biological substances; Z87.891 Personal history of nicotine dependence; Z79.01 Long term (current) use of anticoagulants; Z79.890 Hormone replacement therapy; Z79.84 Long term (current) use of oral hypoglycemic drugs; Z91.148 Patient's other noncompliance with medication regimen for other reason
CPT/HCPCS: 36415; 80048; 80053; 80061; 83036; 83735; 83880; 84100; 84443; 85025; 93306; 94640; 94664; 94760; 94762; 97110; 97162; 97165; 97530; 97535; A9270; J1650; J1938; J3475; J7050

== ENCOUNTER 2025-05-10 08:15 | Inpatient (IN) | payer MEDICARE, OTHER ==
[~2025-05-10] VITALS: Ht 162.6 cm; Wt 97.9 kg
[~2025-05-10 08:15] MED LIST changes: +BISA10S PR; +BREO ELLIPTA 21 EAC1 INH; +ELIQUIS5 M2 PO; +JUVEN PACKET1 EAC3 PO; +LEVOTHYROXINE100 M10 PO; +METO100ER PO; +METO50ER PO; +TIOT18 INH
[2025-05-10 08:52] LABS: Source, Urine Foley catheter
[2025-05-10 09:01] LABS: BASOPHILS ABSOLUTE AUTO 0.02 K/mm3 (0.00-0.23); BASOPHILS PERCENT AUTO 0 % (0-2); EOSINOPHILS ABSOLUTE AUTO 0.04 K/mm3 (0.00-0.68); EOSINOPHILS PERCENT AUTO 0 % (0-6); Hematocrit 40.9 % (33.0-51.0); Hemoglobin 13.1 g/dL (11.5-16.0); IMMATURE GRAN ABSOLUTE AUTO 0.04 K/mm3 (0.00-0.10); IMMATURE GRAN PERCENT AUTO 0 % (0-1); LYMPHOCYTES ABSOLUTE AUTO 1.07 K/mm3 (0.84-5.20); LYMPHOCYTES PERCENT AUTO 12 % (21-46); MONOCYTES ABSOLUTE AUTO 1.01 K/mm3 (0.16-1.47); MONOCYTES PERCENT AUTO 11 % (4-13); Mean Corpuscular HGB Conc 32.0 g/dL (31.5-36.5); Mean Corpuscular Volume 85 fL (80-100); NEUTROPHILS ABSOLUTE AUTO 7.01 K/mm3 (1.96-9.15); NEUTROPHILS PERCENT AUTO 76 % (41-73); NRBC ABSOLUTE 0.00 K/mm3 (0.00-0.02); NRBC Auto 0.0 /100 WBC (0.0-0.2); Platelet Count 219 K/mm3 (150-400); RDW Coefficient Variation 20.0 % (11.7-14.2); RDW Standard Deviation 62.0 fL (35.1-46.3)
[2025-05-10 09:07] LABS: Bilirubin, Urine Neg (Neg); Color, Urine Yellow (P-Yellow); Glucose Qualitative, Urine Neg (Neg); Ketones, Urine Neg (Neg); Leukocyte Esterase, Urine 2+ (Neg); Protein, Urine 2+ (Neg); Specific Gravity, Urine 1.025 (1.003-1.022); Urobilinogen, Urine NORM (Normal)
[2025-05-10 09:09] LABS: Red Blood Cells, Urine 25-50 /hpf (0-2); White Blood Cells, Urine 50-100 /hpf (0-5)
[2025-05-10 09:20] LABS: Alanine Aminotransfer (ALT/SGP 25.0 U/L (12-78); Albumin, Blood 3.0 g/dL (3.4-5.0); Albumin/Globulin Ratio 0.7 (0.8-1.8); Anion Gap 4.0 mmol/L (3-11); Aspartate Aminotrans (AST/SGOT 32.0 U/L (12-37); Bilirubin, Total 1.2 mg/dL (0.1-1.0); Blood Urea Nitrogen 44.0 mg/dL (8-24); CO2, Blood 29.0 mmol/L (21-32); Calcium, Blood 9.6 mg/dL (8.5-10.1); Chloride, Blood 94.0 mmol/L (98-108); Creatinine, Blood 1.06 mg/dL (0.40-1.00); Globulin, Blood 4.4 g/dL (2.2-4.0); Glucose, Blood 112.0 mg/dL (70-99); Potassium, Blood 4.3 mmol/L (3.5-5.5); Sodium, Blood 123.0 mmol/L (136-145); Total Protein, Blood 7.4 g/dL (6.4-8.2)
[2025-05-10] MEDS ORDERED: CefTRIAXone Sodium 1,000 MG in NS 100 ML IV ONE (10:50)
[2025-05-10] MEDS ORDERED: Formoterol/Mometasone MDI 5/200 mcg 13 GM INH SCH (12:45)
--- NOTE | 2025-05-10 15:45 | NUR ---
PT TRANSFERED TO ROOM 336. FAMILY AT BEDSIDE.
[2025-05-10 15:46] VITALS: BP 148/94
[2025-05-10] MEDS ORDERED: Insulin Human Lispro 100 Units/ML 3ML Syringe SC SCH (16:30)
--- NOTE | 2025-05-10 19:11 | NUR ---
SHIFT SUMMARY PT IS A/OX4, FORGETFUL AT TIMES. BEDREST AT THIS TIME R/T WEAKNESS. 2 PERSON ASSIST WITH TURNING. PITTING EDEMA TO THE BLE. ON 3L NC, SATS >95%. PT REPORTS 3L NC AT BASELINE. PURWICK IN PLACE DRAINING YELLOW URINE. FAMILY AT BEDSIDE THIS EVENING. PT IS PLEASANT AND COOPERATIVE WITH CARE AND CALLS APPROPRIATLEY USING THE CALL LIGHT.
[2025-05-10 20:14] VITALS: BP 119/96
[2025-05-11] VITALS (7 sets, daily range): BP systolic 114–140; BP diastolic 63–100
--- NOTE | 2025-05-11 04:21 | NUR ---
PATIENT ALERT AND ORIENTED X 3 DURING SHIFT. PATIENT ON 3 L NC BUT PLACED ON OXY MASK DUE TO NOSE BLEED. PURWICK IN PLACE. PATIENT ABLE TO SWALLOW PILLS WHOLE. NO COMPLAINTS OF PAIN. PATIENT TURNED EVERY TWO HRS. DESENEX ORDERE FOR REDNESS UNDER FOLDS OF BREAST AND PANNUS. BED IN LOW POSITION WITH WHEELS LOCKED. CALL LIGHT WITHIN REACH
[2025-05-11] MEDS ORDERED: Oxymetazoline 0.05% Nasal Relief Spray 15mL BTL PRN ×2 (05:45→08:45)
[2025-05-11 06:04] LABS: BASOPHILS ABSOLUTE AUTO 0.03 K/mm3 (0.00-0.23); BASOPHILS PERCENT AUTO 0 % (0-2); EOSINOPHILS ABSOLUTE AUTO 0.07 K/mm3 (0.00-0.68); EOSINOPHILS PERCENT AUTO 1 % (0-6); Hematocrit 36.9 % (33.0-51.0); Hemoglobin 11.7 g/dL (11.5-16.0); IMMATURE GRAN ABSOLUTE AUTO 0.03 K/mm3 (0.00-0.10); IMMATURE GRAN PERCENT AUTO 0 % (0-1); LYMPHOCYTES ABSOLUTE AUTO 0.99 K/mm3 (0.84-5.20); LYMPHOCYTES PERCENT AUTO 11 % (21-46); MONOCYTES ABSOLUTE AUTO 1.16 K/mm3 (0.16-1.47); MONOCYTES PERCENT AUTO 13 % (4-13); Mean Corpuscular HGB Conc 31.7 g/dL (31.5-36.5); Mean Corpuscular Volume 85 fL (80-100); NEUTROPHILS ABSOLUTE AUTO 6.82 K/mm3 (1.96-9.15); NEUTROPHILS PERCENT AUTO 75 % (41-73); NRBC ABSOLUTE 0.00 K/mm3 (0.00-0.02); NRBC Auto 0.0 /100 WBC (0.0-0.2); Platelet Count 220 K/mm3 (150-400); RDW Coefficient Variation 19.8 % (11.7-14.2); RDW Standard Deviation 61.4 fL (35.1-46.3)
[2025-05-11 06:24] LABS: Alanine Aminotransfer (ALT/SGP 23.0 U/L (12-78); Albumin, Blood 2.6 g/dL (3.4-5.0); Albumin/Globulin Ratio 0.6 (0.8-1.8); Anion Gap 8.0 mmol/L (3-11); Aspartate Aminotrans (AST/SGOT 32.0 U/L (12-37); Bilirubin, Total 1.0 mg/dL (0.1-1.0); Blood Urea Nitrogen 43.0 mg/dL (8-24); CO2, Blood 30.0 mmol/L (21-32); Calcium, Blood 9.3 mg/dL (8.5-10.1); Chloride, Blood 96.0 mmol/L (98-108); Creatinine, Blood 1.15 mg/dL (0.40-1.00); Globulin, Blood 4.3 g/dL (2.2-4.0); Glucose, Blood 98.0 mg/dL (70-99); Potassium, Blood 4.0 mmol/L (3.5-5.5); Sodium, Blood 130.0 mmol/L (136-145); Total Protein, Blood 6.9 g/dL (6.4-8.2)
[2025-05-11] MEDS ORDERED: Miconazole Nitrate 2% 85 GM PWD TOP SCH (09:00)
[2025-05-11] MEDS ORDERED: Albumin (Human) 25gm/100ml 100 ML IV SCH (10:13)
[2025-05-11] MEDS ORDERED: CefTRIAXone Sodium 1,000 MG in NS 100 ML IV SCH (12:00)
[2025-05-11 16:44] LABS: Anion Gap 7.0 mmol/L (3-11); Blood Urea Nitrogen 45.0 mg/dL (8-24); CO2, Blood 25.0 mmol/L (21-32); Calcium, Blood 9.8 mg/dL (8.5-10.1); Chloride, Blood 98.0 mmol/L (98-108); Creatinine, Blood 0.95 mg/dL (0.40-1.00); Glucose, Blood 97.0 mg/dL (70-99); Potassium, Blood 4.2 mmol/L (3.5-5.5); Sodium, Blood 126.0 mmol/L (136-145)
--- NOTE | 2025-05-11 18:40 | NUR ---
SHIFT SUMMARY: PATIENT A+O X4 AND COOPERATIVE WITH CARE. PATIENT BEING DIEURESED D/T ANASARCA AND 4+ PITTING EDEMA. PATIENT REMAINS ON THE OXY-MASK AT THIS TIME D/T HEAVY MOUTH BREATHING. EPISTAXIS STILL NOTED TO BE PRESENT. MD NOTIFIED. WILL CONTINUE TO MONITOR.
[2025-05-11] MEDS ORDERED: Tiotropium Bromide 2.5 MCG/ACT MIST INHAL (10 ACT/4 GM) INH SCH (22:50)
[2025-05-12 02:43] VITALS: BP 124/67
[2025-05-12 05:33] LABS: BASOPHILS ABSOLUTE AUTO 0.02 K/mm3 (0.00-0.23); BASOPHILS PERCENT AUTO 0 % (0-2); EOSINOPHILS ABSOLUTE AUTO 0.04 K/mm3 (0.00-0.68); EOSINOPHILS PERCENT AUTO 1 % (0-6); Hematocrit 32.9 % (33.0-51.0); Hemoglobin 10.5 g/dL (11.5-16.0); IMMATURE GRAN ABSOLUTE AUTO 0.03 K/mm3 (0.00-0.10); IMMATURE GRAN PERCENT AUTO 0 % (0-1); LYMPHOCYTES ABSOLUTE AUTO 0.77 K/mm3 (0.84-5.20); LYMPHOCYTES PERCENT AUTO 9 % (21-46); MONOCYTES ABSOLUTE AUTO 0.95 K/mm3 (0.16-1.47); MONOCYTES PERCENT AUTO 12 % (4-13); Mean Corpuscular HGB Conc 31.9 g/dL (31.5-36.5); Mean Corpuscular Volume 84 fL (80-100); NEUTROPHILS ABSOLUTE AUTO 6.42 K/mm3 (1.96-9.15); NEUTROPHILS PERCENT AUTO 78 % (41-73); NRBC ABSOLUTE 0.00 K/mm3 (0.00-0.02); NRBC Auto 0.0 /100 WBC (0.0-0.2); Platelet Count 181 K/mm3 (150-400); RDW Coefficient Variation 19.8 % (11.7-14.2); RDW Standard Deviation 61.1 fL (35.1-46.3)
[2025-05-12 06:03] LABS: Alanine Aminotransfer (ALT/SGP 22.0 U/L (12-78); Albumin, Blood 3.1 g/dL (3.4-5.0); Albumin/Globulin Ratio 0.9 (0.8-1.8); Anion Gap 9.0 mmol/L (3-11); Aspartate Aminotrans (AST/SGOT 30.0 U/L (12-37); Bilirubin, Total 1.1 mg/dL (0.1-1.0); Blood Urea Nitrogen 41.0 mg/dL (8-24); CO2, Blood 29.0 mmol/L (21-32); Calcium, Blood 9.7 mg/dL (8.5-10.1); Chloride, Blood 97.0 mmol/L (98-108); Creatinine, Blood 0.95 mg/dL (0.40-1.00); Globulin, Blood 3.4 g/dL (2.2-4.0); Glucose, Blood 127.0 mg/dL (70-99); Magnesium, Blood 2.0 mg/dL (1.6-2.4); Phosphorus, Blood 3.3 mg/dL (2.5-4.9); Potassium, Blood 3.8 mmol/L (3.5-5.5); Sodium, Blood 131.0 mmol/L (136-145); Total Protein, Blood 6.5 g/dL (6.4-8.2)
--- NOTE | 2025-05-12 06:39 | NUR ---
SUMMARY VSS. APPEARS WEAK, WITH NASAL PACK ON NOSTRIL. ON OXY MASK AND TOLERATES WELL. ORIENTED BUT SLOW ON RESPONSE/SPEECH OFTEN TIMES. HIGHLY INCONTINENT AND RED, PERINEAL CARE DONE. WEAK, HIGHLY EDEMATOUS AND FULL CARE RENDERRED. NO EPISTAXIS FOR THE SHIFT. WELL RESTED.
[2025-05-12] MEDS ORDERED: Enoxaparin 40 MG/0.4 ML SYR SC SCH (07:00)
[2025-05-12 07:53] VITALS: BP 134/94
[2025-05-12] MEDS ORDERED: CefOXitin Sodium 1,000 MG in NS 50 ML IV SCH (16:00)
[2025-05-12 16:18] VITALS: BP 113/86
--- NOTE | 2025-05-12 19:10 | NUR ---
SHIFT SUMMARY CLIENT IS AOX4. MEDICATION COMPLIANT. DIAPHORESIS CONTINUES. PUREWICK REMAINS IN PLACE AND FUNCTIONING. OXYGEN REMAIN AT 2L VIA FACE MASK. NO COMPLAINTS OF PAIN. INSULIN COVERAGE GIVEN PRIOR TO BREAKFAST. IV ABT CONTINUES. BED IS IN LOW POSITION AND CALL LIGHT IS WITHIN REACH
[2025-05-12 20:01] VITALS: BP 116/77
[2025-05-12] MEDS ORDERED: NS 250 ML IV PRN (23:35)
[2025-05-13 03:17] VITALS: BP 114/67
--- NOTE | 2025-05-13 04:06 | NUR ---
SHIFT SUMMARY PATIENT HAD NO ACUTE CHANGES. ALERT ORIENTED AND ONE ASSIST. DENIES CHEST PAIN, SOB, AND N/V. VSS/AFEBRILE. CBG 139. PIV INTACT. IV ABX INFUSED. ON 2L O2 OXY MASK. PUREWICK IN PLACE. SLEPT MOST OF THE SHIFT. CALL LIGHT IN REACH. BED IN LOWEST POSITION. WILL CONTINUE TO MONITOR UNTIL DAY SHIFT NURSE ASSUMES CARE.
[2025-05-13 05:37] LABS: BASOPHILS ABSOLUTE AUTO 0.01 K/mm3 (0.00-0.23); BASOPHILS PERCENT AUTO 0 % (0-2); EOSINOPHILS ABSOLUTE AUTO 0.03 K/mm3 (0.00-0.68); EOSINOPHILS PERCENT AUTO 0 % (0-6); Hematocrit 32.9 % (33.0-51.0); Hemoglobin 10.6 g/dL (11.5-16.0); IMMATURE GRAN ABSOLUTE AUTO 0.07 K/mm3 (0.00-0.10); IMMATURE GRAN PERCENT AUTO 1 % (0-1); LYMPHOCYTES ABSOLUTE AUTO 0.74 K/mm3 (0.84-5.20); LYMPHOCYTES PERCENT AUTO 6 % (21-46); MONOCYTES ABSOLUTE AUTO 1.30 K/mm3 (0.16-1.47); MONOCYTES PERCENT AUTO 11 % (4-13); Mean Corpuscular HGB Conc 32.2 g/dL (31.5-36.5); Mean Corpuscular Volume 84 fL (80-100); NEUTROPHILS ABSOLUTE AUTO 9.79 K/mm3 (1.96-9.15); NEUTROPHILS PERCENT AUTO 82 % (41-73); NRBC ABSOLUTE 0.00 K/mm3 (0.00-0.02); NRBC Auto 0.0 /100 WBC (0.0-0.2); Platelet Count 160 K/mm3 (150-400); RDW Coefficient Variation 19.5 % (11.7-14.2); RDW Standard Deviation 60.4 fL (35.1-46.3)
[2025-05-13 05:57] LABS: Alanine Aminotransfer (ALT/SGP 21.0 U/L (12-78); Albumin, Blood 3.2 g/dL (3.4-5.0); Albumin/Globulin Ratio 1.0 (0.8-1.8); Anion Gap 9.0 mmol/L (3-11); Aspartate Aminotrans (AST/SGOT 24.0 U/L (12-37); Bilirubin, Total 1.8 mg/dL (0.1-1.0); Blood Urea Nitrogen 35.0 mg/dL (8-24); CO2, Blood 30.0 mmol/L (21-32); Calcium, Blood 9.9 mg/dL (8.5-10.1); Chloride, Blood 96.0 mmol/L (98-108); Creatinine, Blood 0.87 mg/dL (0.40-1.00); Globulin, Blood 3.2 g/dL (2.2-4.0); Glucose, Blood 119.0 mg/dL (70-99); Potassium, Blood 3.5 mmol/L (3.5-5.5); Sodium, Blood 131.0 mmol/L (136-145); Total Protein, Blood 6.4 g/dL (6.4-8.2)
[2025-05-13 07:41] VITALS: BP 123/77
[2025-05-13 11:36] VITALS: BP 121/87
[2025-05-13 15:01] VITALS: BP 93/59
--- NOTE | 2025-05-13 19:27 | NUR ---
SHIFT SUMMARY CLIENT IS AOX3-4. MEDICATION COMPLIANT. REMAINS ON 2L OF OXYGEN VIA FACE MASK. IN ABT CONTINUES. PUREWICK REMAINS IN PLACE. NO INSULIN COVERAGE NEEDED THIS SHIFT. +4 EDEMA TO BILAT LOWER EXTREMITIES REMAINS. DIAPHOESIS CONTINUES. BED IS IN LOW POSITION AND CALL LIGHT IS WITHIN REACH
[2025-05-13 19:30] VITALS: BP 114/76
--- NOTE | 2025-05-14 04:09 | NUR ---
SHIFT SUMMARY PATIENT HAD NO ACUTE CHANGES. ALERT ORIENTED AND BEDREST. ON 2L O2 VIA MASK. DENIES CHEST PAIN, SOB, AND N/V. VSS/AFEBRILE. PUREWICK IN PLACE. CBG 154. SLEPT MOST OF THE SHIFT. CALL LIGHT IN REACH. BED IN LOWEST POSITION. WILL CONTINUE TO MONITOR UNTIL DAY SHIFT NURSE ASSUMES CARE.
[2025-05-14 05:20] VITALS: BP 126/79
[2025-05-14 06:30] LABS: BASOPHILS ABSOLUTE AUTO 0.01 K/mm3 (0.00-0.23); BASOPHILS PERCENT AUTO 0 % (0-2); EOSINOPHILS ABSOLUTE AUTO 0.01 K/mm3 (0.00-0.68); EOSINOPHILS PERCENT AUTO 0 % (0-6); Hematocrit 32.6 % (33.0-51.0); Hemoglobin 10.4 g/dL (11.5-16.0); IMMATURE GRAN ABSOLUTE AUTO 0.07 K/mm3 (0.00-0.10); IMMATURE GRAN PERCENT AUTO 1 % (0-1); LYMPHOCYTES ABSOLUTE AUTO 0.74 K/mm3 (0.84-5.20); LYMPHOCYTES PERCENT AUTO 6 % (21-46); MONOCYTES ABSOLUTE AUTO 1.45 K/mm3 (0.16-1.47); MONOCYTES PERCENT AUTO 11 % (4-13); Mean Corpuscular HGB Conc 31.9 g/dL (31.5-36.5); Mean Corpuscular Volume 84 fL (80-100); NEUTROPHILS ABSOLUTE AUTO 10.94 K/mm3 (1.96-9.15); NEUTROPHILS PERCENT AUTO 83 % (41-73); NRBC ABSOLUTE 0.00 K/mm3 (0.00-0.02); NRBC Auto 0.0 /100 WBC (0.0-0.2); Platelet Count 145 K/mm3 (150-400); RDW Coefficient Variation 19.4 % (11.7-14.2); RDW Standard Deviation 59.5 fL (35.1-46.3)
[2025-05-14 07:01] LABS: Magnesium, Blood 1.8 mg/dL (1.6-2.4)
[2025-05-14 07:02] LABS: Alanine Aminotransfer (ALT/SGP 18.0 U/L (12-78); Albumin, Blood 3.4 g/dL (3.4-5.0); Albumin/Globulin Ratio 1.1 (0.8-1.8); Anion Gap 7.0 mmol/L (3-11); Aspartate Aminotrans (AST/SGOT 18.0 U/L (12-37); Bilirubin, Total 2.0 mg/dL (0.1-1.0); Blood Urea Nitrogen 33.0 mg/dL (8-24); CO2, Blood 32.0 mmol/L (21-32); Calcium, Blood 9.7 mg/dL (8.5-10.1); Chloride, Blood 95.0 mmol/L (98-108); Creatinine, Blood 0.79 mg/dL (0.40-1.00); Globulin, Blood 3.2 g/dL (2.2-4.0); Glucose, Blood 121.0 mg/dL (70-99); Potassium, Blood 3.6 mmol/L (3.5-5.5); Sodium, Blood 130.0 mmol/L (136-145); Total Protein, Blood 6.6 g/dL (6.4-8.2)
[2025-05-14 08:07] VITALS: BP 128/94
[2025-05-14] MEDS ORDERED: CEFOXITIN IV ONE (09:22)
[2025-05-14] MEDS ORDERED: ACET325 PO (15:49)
[2025-05-14 17:22] VITALS: BP 127/99
--- NOTE | 2025-05-14 18:12 | NUR ---
SHIFT SUMMARY PT RESTING IN BED TODAY. REFUSED PHYSICAL THERAPY TODAY. PURE WICK REMOVED MID DAY TO GIVE THE SKIN A BREAK AND SOME SWELLING AND SKIN BREAKDOWN WAS FOUND PRIMARILY ON HER L LABIA. BARRIER CREAM APPLIED TO HELP PROTECT SKIN FROM INCONT EPISODES AND PURE WICK LEFT OUT. SPOKE TO PALLIATIVE CARE ABOUT LACK OF INVOLVMENT IN THERAPY AND CODE STATUS. PALLIATIVE CARE TO FOLLOW UP ON THIS. NO OTHER ACUTE CHANGES IN ASSESSMENT AT THIS TIME. VS REVIEWED. CALL LIGHT IN REACH. FAMILY AT BEDSIDE. PT DENIES PAIN THIS SHIFT.
[2025-05-14 19:57] VITALS: BP 119/80
[2025-05-15 03:58] VITALS: BP 131/91
--- NOTE | 2025-05-15 05:56 | NUR ---
SHIFT SUMMARY A&OX3-4. ABLE TO MAKE ALL NEEDS KNOWN. VERY PLEASANT DEMEANOR. IV IN RIGHT HAND WAS LEAKING AND HAD TO BE REMOVED. NEW IV INSERTED IN LEFT HAND AND CURRENTLY SALINE LOCKED AFTER ABX INFUSION. PT REPOSITIONED Q 2 HOURS AND HEELS FLOATED. PT HAD MULTIPLE INCONTINENT BM'S DURING SHIFT AND WAS CLEANED APPROPRIATELY. PT DOES HAVE A RED BUTTERFLY SHAPED RASH ON FACE THAT PT DENIES ANY SYMPTOMS WITH. WILL REPORT TO DAY SHIFT RN TO MENTION TO PROVIDER. PT CURRENTLY RESTING IN BED AT LOWEST POSITION WITH CALL LIGHT WITHIN REACH.
[2025-05-15 07:48] VITALS: BP 148/101
[2025-05-15 07:52] VITALS: BP 136/103
[2025-05-15 08:29] LABS: BASOPHILS ABSOLUTE AUTO 0.03 K/mm3 (0.00-0.23); BASOPHILS PERCENT AUTO 0 % (0-2); EOSINOPHILS ABSOLUTE AUTO 0.03 K/mm3 (0.00-0.68); EOSINOPHILS PERCENT AUTO 0 % (0-6); Hematocrit 33.7 % (33.0-51.0); Hemoglobin 10.9 g/dL (11.5-16.0); IMMATURE GRAN ABSOLUTE AUTO 0.06 K/mm3 (0.00-0.10); IMMATURE GRAN PERCENT AUTO 1 % (0-1); LYMPHOCYTES ABSOLUTE AUTO 0.70 K/mm3 (0.84-5.20); LYMPHOCYTES PERCENT AUTO 6 % (21-46); MONOCYTES ABSOLUTE AUTO 1.28 K/mm3 (0.16-1.47); MONOCYTES PERCENT AUTO 10 % (4-13); Mean Corpuscular HGB Conc 32.3 g/dL (31.5-36.5); Mean Corpuscular Volume 84 fL (80-100); NEUTROPHILS ABSOLUTE AUTO 10.71 K/mm3 (1.96-9.15); NEUTROPHILS PERCENT AUTO 84 % (41-73); NRBC ABSOLUTE 0.00 K/mm3 (0.00-0.02); NRBC Auto 0.0 /100 WBC (0.0-0.2); Platelet Count 135 K/mm3 (150-400); RDW Coefficient Variation 19.5 % (11.7-14.2); RDW Standard Deviation 59.9 fL (35.1-46.3)
[2025-05-15 08:46] LABS: Alanine Aminotransfer (ALT/SGP 21.0 U/L (12-78); Albumin, Blood 3.7 g/dL (3.4-5.0); Albumin/Globulin Ratio 1.1 (0.8-1.8); Anion Gap 8.0 mmol/L (3-11); Aspartate Aminotrans (AST/SGOT 21.0 U/L (12-37); Bilirubin, Total 1.8 mg/dL (0.1-1.0); Blood Urea Nitrogen 34.0 mg/dL (8-24); CO2, Blood 32.0 mmol/L (21-32); Calcium, Blood 9.6 mg/dL (8.5-10.1); Chloride, Blood 93.0 mmol/L (98-108); Creatinine, Blood 0.77 mg/dL (0.40-1.00); Globulin, Blood 3.5 g/dL (2.2-4.0); Glucose, Blood 125.0 mg/dL (70-99); Potassium, Blood 3.5 mmol/L (3.5-5.5); Sodium, Blood 129.0 mmol/L (136-145); Total Protein, Blood 7.2 g/dL (6.4-8.2)
[2025-05-15 18:01] VITALS: BP 130/92
--- NOTE | 2025-05-15 18:47 | NUR ---
SHIFT SUMMARY PT WORKED WITH THERAPY TODAY. INCONT WITH LARGE VOLUMES OF URINE. PT HAVING FREQUENT STOOLS AND STOOLS ARE BECOMING MORE AND MORE LIQUID. BUTTERFLY LOOKING RASH, RED/PURPLE IN COLOR, ACCROSS FACE. MD ALERTED THAT THIS RASH WAS LOOKING WORSE. NO NEW ORDERS IN RELATION TO THIS. MD IN ROOM TO ASSESS HER FACE. DR. BARNES NOTIFIED THAT FAMILY WANTED A CALL FROM HIM TO TALK ABOUT THE PLAN OF CARE FOR THE PATIENT. NO OTHER ACUTE CHANGES IN ASSESSMENT AT THIS TIME. VS REVIEWED. CALL LIGHT IN REACH. DENIES OTHER NEEDS AT THIS TIME.
[2025-05-15 19:30] VITALS: BP 135/84
[2025-05-16 04:21] VITALS: BP 127/92
--- NOTE | 2025-05-16 04:32 | NUR ---
TASSEL SNIPPER SUMMARY SBP ELEVATED, OTHERWISE VSS. ALERT AND ORIENTED X 3-4. SLOW TO RESPOND DUE TO APPARENT HEARING LOSS. O2 AT 2L/MIN PER NC. SATS >90%. RESPS EVEN. HOB ELAVATED FOR COMFORT AND FOR ASPIRATION PRECAUTIONS. IVF NS AT [facility] AND IV ANTIBIOTICS - SEE MAR FOR DETAILS. INCONT OF BOWEL. CLEANED. TOLLIVER IN PLACE. REPOSITIONED INTERMITTENTLY FOR COMFORT AND SKIN MAINTAINENCE, SEE PERSONAL DOCUMENTATION FOR DETAILS. HAS BEEN RESTING QUIELTY MOST OF THE NIGHT. CALL LIGHT IN REACH, RAILS UP X 2 AND BED IN LOW POSITION FOR SAFETY. CONTACT ISOLATION MAINTAINED. WILL CONT TO MONITOR
[2025-05-16] MEDS ORDERED: FentaNYL Citrate 50 MCG/ML 2 ML Injection IV PRN (05:35)
[2025-05-16 06:28] LABS: BASOPHILS ABSOLUTE AUTO 0.04 K/mm3 (0.00-0.23); BASOPHILS PERCENT AUTO 0 % (0-2); EOSINOPHILS ABSOLUTE AUTO 0.09 K/mm3 (0.00-0.68); EOSINOPHILS PERCENT AUTO 1 % (0-6); Hematocrit 33.8 % (33.0-51.0); Hemoglobin 10.9 g/dL (11.5-16.0); IMMATURE GRAN ABSOLUTE AUTO 0.10 K/mm3 (0.00-0.10); IMMATURE GRAN PERCENT AUTO 1 % (0-1); LYMPHOCYTES ABSOLUTE AUTO 0.62 K/mm3 (0.84-5.20); LYMPHOCYTES PERCENT AUTO 3 % (21-46); MONOCYTES ABSOLUTE AUTO 2.17 K/mm3 (0.16-1.47); MONOCYTES PERCENT AUTO 12 % (4-13); Mean Corpuscular HGB Conc 32.2 g/dL (31.5-36.5); Mean Corpuscular Volume 84 fL (80-100); NEUTROPHILS ABSOLUTE AUTO 15.26 K/mm3 (1.96-9.15); NEUTROPHILS PERCENT AUTO 84 % (41-73); NRBC ABSOLUTE 0.00 K/mm3 (0.00-0.02); NRBC Auto 0.0 /100 WBC (0.0-0.2); Platelet Count 137 K/mm3 (150-400); RDW Coefficient Variation 19.6 % (11.7-14.2); RDW Standard Deviation 60.0 fL (35.1-46.3)
[2025-05-16 07:05] LABS: Alanine Aminotransfer (ALT/SGP 22.0 U/L (12-78); Albumin, Blood 3.9 g/dL (3.4-5.0); Albumin/Globulin Ratio 1.4 (0.8-1.8); Anion Gap 6.0 mmol/L (3-11); Aspartate Aminotrans (AST/SGOT 21.0 U/L (12-37); Bilirubin, Total 3.3 mg/dL (0.1-1.0); Blood Urea Nitrogen 33.0 mg/dL (8-24); CO2, Blood 31.0 mmol/L (21-32); Calcium, Blood 9.8 mg/dL (8.5-10.1); Chloride, Blood 93.0 mmol/L (98-108); Creatinine, Blood 0.71 mg/dL (0.40-1.00); Globulin, Blood 2.8 g/dL (2.2-4.0); Glucose, Blood 122.0 mg/dL (70-99); Potassium, Blood 3.4 mmol/L (3.5-5.5); Sodium, Blood 127.0 mmol/L (136-145); Total Protein, Blood 6.7 g/dL (6.4-8.2)
[2025-05-16 07:59] VITALS: BP 134/89
[2025-05-16] MEDS ORDERED: Piperacillin/Tazobactam Sod 3.375 GM in NS 100 ML IV SCH (12:30)
[2025-05-16 15:36] LABS: C DIFFICILE DNA POSITIVE (Negative)
[2025-05-16 15:47] VITALS: BP 123/83
--- NOTE | 2025-05-16 17:26 | NUR ---
End of shift summary: Patient is alert and oriented x3; pleasant and cooperative with care. Patient with increased weakness, drowsiness, and decreased appetite today. Patient with 2 very large liquid stool with foul odor and sample sent to lab with positive result for C-Diff. Patient already in contact isolation for ESBL in urine. All medications administered per EMAR. Patient repositioned for comfort. Patient denies CP, N/V but does have SOB with any exertion; O2 at 2L via NC. Patient utilizing call light appropriately; call light within reach, bed in lowest position. Will continue to montior until next shift nurse arrives and report is given.
--- NOTE | 2025-05-16 19:18 | NUR ---
ASSUMPTION OF CARE: THIS RN ASSUMED CARE OF PATIENT. AWAKE DURING SHIFT CHANGE REPORT. LYING IN BED c HOB ELEVATED. BREATHING EVEN AND UNLABORED c 2LPM/NC. CONTACT PRECAUTIONS FOR +C-DIFF AND ESBL IN URINE. BED IN LOWEST POSITION. CALL LIGHT WITHIN REACH. ACUTE NEEDS MET.
[2025-05-16 19:44] VITALS: BP 121/86
[2025-05-17 05:16] LABS: BASOPHILS ABSOLUTE AUTO 0.03 K/mm3 (0.00-0.23); BASOPHILS PERCENT AUTO 0 % (0-2); EOSINOPHILS ABSOLUTE AUTO 0.00 K/mm3 (0.00-0.68); EOSINOPHILS PERCENT AUTO 0 % (0-6); Hematocrit 30.8 % (33.0-51.0); Hemoglobin 10.0 g/dL (11.5-16.0); IMMATURE GRAN ABSOLUTE AUTO 0.04 K/mm3 (0.00-0.10); IMMATURE GRAN PERCENT AUTO 0 % (0-1); LYMPHOCYTES ABSOLUTE AUTO 0.60 K/mm3 (0.84-5.20); LYMPHOCYTES PERCENT AUTO 5 % (21-46); MONOCYTES ABSOLUTE AUTO 1.33 K/mm3 (0.16-1.47); MONOCYTES PERCENT AUTO 12 % (4-13); Mean Corpuscular HGB Conc 32.5 g/dL (31.5-36.5); Mean Corpuscular Volume 85 fL (80-100); NEUTROPHILS ABSOLUTE AUTO 9.33 K/mm3 (1.96-9.15); NEUTROPHILS PERCENT AUTO 82 % (41-73); NRBC ABSOLUTE 0.00 K/mm3 (0.00-0.02); NRBC Auto 0.0 /100 WBC (0.0-0.2); Platelet Count 119 K/mm3 (150-400); RDW Coefficient Variation 19.6 % (11.7-14.2); RDW Standard Deviation 60.0 fL (35.1-46.3)
[2025-05-17 05:20] VITALS: BP 127/80
[2025-05-17 05:35] LABS: Alanine Aminotransfer (ALT/SGP 16.0 U/L (12-78); Albumin, Blood 3.6 g/dL (3.4-5.0); Albumin/Globulin Ratio 1.2 (0.8-1.8); Anion Gap 9.0 mmol/L (3-11); Aspartate Aminotrans (AST/SGOT 17.0 U/L (12-37); Bilirubin, Total 2.9 mg/dL (0.1-1.0); Blood Urea Nitrogen 34.0 mg/dL (8-24); CO2, Blood 31.0 mmol/L (21-32); Calcium, Blood 9.5 mg/dL (8.5-10.1); Chloride, Blood 93.0 mmol/L (98-108); Creatinine, Blood 0.78 mg/dL (0.40-1.00); Globulin, Blood 3.0 g/dL (2.2-4.0); Glucose, Blood 115.0 mg/dL (70-99); Potassium, Blood 3.2 mmol/L (3.5-5.5); Sodium, Blood 130.0 mmol/L (136-145); Total Protein, Blood 6.6 g/dL (6.4-8.2)
--- NOTE | 2025-05-17 06:48 | NUR ---
END OF SHIFT SUMMARY: A&Ox3-4. PLEASANT AND COOPERATIVE WITH CARE. CALLS APPROPRIATELY AND IS ABLE TO ADVOCATE NEEDS EFFECTIVELY. INCONTINENT OF BOWEL AND BLADDER. THREE INCONTINENT LIQUID STOOLS THIS SHIFT. BEDREST. MEDS WHOLE c FLUIDS. NO C/O PAIN OR DISCOMFORT. SLEPT MAJORITY OF SHIFT. AM LABS DONE. BED IN LOWEST POSITION, CALL LIGHT WITHIN REACH, ALL NEEDS MET. REPORT TO ONCOMING NURSE.
[2025-05-17] MEDS ORDERED: Magnesium Sulf 2 GM/Water 50ML 50 ML IV ONE (08:00)
[2025-05-17 08:03] VITALS: BP 126/89
[2025-05-17] MEDS ORDERED: Lactobacil 2-S.Thermo-Bifido 1 1 Cap PO SCH (09:00)
[2025-05-17 16:11] VITALS: BP 126/74
[2025-05-17 19:22] VITALS: BP 127/95
--- NOTE | 2025-05-17 19:34 | NUR ---
SHIFT SUMMARY AOX1-2. CLIENT DIFFICULT TO AROUSE AND STAY AWAKE. MORNING MEDICATIONS NOT GIVEN CLIENT COULD NOT STAY AWAKE WHILE STAFF WAS SPEAKING WITH HER. REMAINS ON 2L OF HUMIDIFIED OXYGEN. CONIUES WITH IV ABT AND ORAL VANCO. REMAINS ON CONTACT PRECAUTION FOR C. DIFF. BLOOD SUGARS WERE 128,150, & 139. BED IS IN LOW POSITION AND CALL LIGHT IS WITHIN REACH.
--- NOTE | 2025-05-18 00:26 | NUR ---
0025 05/18/25 ASSUMED CARE OF THIS PT. RECEIVED REPORT FROM LASHELL JEAN.
--- NOTE | 2025-05-18 00:29 | NUR ---
SUMMARY: PT AOX2- UNABLE TO TELL THE DATE OR SITUATION, ON 2LNC, REPO Q 2 OVERNIGHT. PT HAD 2 BMS THIS SHIFT. PUREWICK IN PLACE DUE TO PTS INCONTINENCE AND RECEIVING DIURETICS. REPORT GIVEN TO MARY ANN CALLE DUE TO THIS RN BEING SENT HOME DUE TO LOW CENSUS.
[2025-05-18 04:00] VITALS: BP 123/91
[2025-05-18 06:03] LABS: BASOPHILS ABSOLUTE AUTO 0.04 K/mm3 (0.00-0.23); BASOPHILS PERCENT AUTO 1 % (0-2); EOSINOPHILS ABSOLUTE AUTO 0.03 K/mm3 (0.00-0.68); EOSINOPHILS PERCENT AUTO 0 % (0-6); Hematocrit 31.5 % (33.0-51.0); Hemoglobin 10.2 g/dL (11.5-16.0); IMMATURE GRAN ABSOLUTE AUTO 0.02 K/mm3 (0.00-0.10); IMMATURE GRAN PERCENT AUTO 0 % (0-1); LYMPHOCYTES ABSOLUTE AUTO 0.59 K/mm3 (0.84-5.20); LYMPHOCYTES PERCENT AUTO 7 % (21-46); MONOCYTES ABSOLUTE AUTO 1.40 K/mm3 (0.16-1.47); MONOCYTES PERCENT AUTO 16 % (4-13); Mean Corpuscular HGB Conc 32.4 g/dL (31.5-36.5); Mean Corpuscular Volume 85 fL (80-100); NEUTROPHILS ABSOLUTE AUTO 6.54 K/mm3 (1.96-9.15); NEUTROPHILS PERCENT AUTO 76 % (41-73); NRBC ABSOLUTE 0.00 K/mm3 (0.00-0.02); NRBC Auto 0.0 /100 WBC (0.0-0.2); Platelet Count 121 K/mm3 (150-400); RDW Coefficient Variation 19.5 % (11.7-14.2); RDW Standard Deviation 60.2 fL (35.1-46.3)
[2025-05-18 06:25] LABS: Alanine Aminotransfer (ALT/SGP 16.0 U/L (12-78); Albumin, Blood 3.3 g/dL (3.4-5.0); Albumin/Globulin Ratio 1.1 (0.8-1.8); Anion Gap 8.0 mmol/L (3-11); Aspartate Aminotrans (AST/SGOT 14.0 U/L (12-37); Bilirubin, Total 2.2 mg/dL (0.1-1.0); Blood Urea Nitrogen 30.0 mg/dL (8-24); CO2, Blood 33.0 mmol/L (21-32); Calcium, Blood 9.7 mg/dL (8.5-10.1); Chloride, Blood 94.0 mmol/L (98-108); Creatinine, Blood 0.7 mg/dL (0.40-1.00); Globulin, Blood 3.1 g/dL (2.2-4.0); Glucose, Blood 109.0 mg/dL (70-99); Potassium, Blood 2.9 mmol/L (3.5-5.5); Sodium, Blood 132.0 mmol/L (136-145); Total Protein, Blood 6.4 g/dL (6.4-8.2)
--- NOTE | 2025-05-18 06:33 | NUR ---
SHIFT SUMMARY ASSUMED CARE FOR THIS PT 0025 AFTER RECEIVING REPORT FROM LASHELL JEAN. PT LYING IN BED RESTING COMFORTABLY. PUREWIC AND ATTENDS CHANGED. PT LEFT HIP FLOATED FOR COMFORT. ASSISTED BY FRANCES HUDSON. WITH MORNING MED PASS, PT WOKE, TOOK MEDICATION, THEN WENT BACK TO SLEEP.
[2025-05-18 07:40] VITALS: BP 133/104
[2025-05-18 15:00] VITALS: BP 118/82
[2025-05-18 19:22] VITALS: BP 115/88
--- NOTE | 2025-05-18 19:57 | NUR ---
SHIFT SUMMARY AOX 3-4. MEDICATION COMPLIANT. REMAINS ON CONTACT PRECAUTION FOR ESBL AND C. DIFF. REMAINS ON IV LASIX. LOWER LEG EDEMA REMAINS AT +4. BLOOD SUGARS WERE 110, 152, AND 120. SLIDING SCALE COVERAGE PROVIDED PER EMAR. BED IS IN LOW POSITION AND CALL LIGHT IS WITHIN REACH.
[2025-05-19 04:24] VITALS: BP 126/90
--- NOTE | 2025-05-19 05:56 | NUR ---
SHIFT SUMMARY PT ALERT AND ORIENTED TIMES 2-3. PT ADMITTED FOR UTI/ SEPSIS POSITIVE FOR C-DIF AND ON CONTACT PERCAUTIONS. . PT HAS PUREWICKING SYSTEM IN PLACE. PT IS ACHS. PT APPEARED TO SLEEP THROUGHOUT THE NIGHT. PT IS RECEPTIVE TO CARE. PT TAKES MEDICATION WHOLE WITH WATER. PT HAS FLUID RESTRICTION ORDER OF 1000ML/ 24 HOURS. PT IS ON 2-3 LITERS O2 WITH NASAL CANNULA. PT TOOK MEDICATION WHOLE WITH WATER ONE AT A TIME. PT WAS TURNED Q2 FOR COMFORT AND SKIN BREAKDOWN.CALL LIGHT WITHIN REACH, RAILS TIMES 2, BED IN LOW POSITION.
[2025-05-19 08:18] VITALS: BP 141/95
[2025-05-19 09:18] LABS: BASOPHILS ABSOLUTE AUTO 0.02 K/mm3 (0.00-0.23); BASOPHILS PERCENT AUTO 0 % (0-2); EOSINOPHILS ABSOLUTE AUTO 0.04 K/mm3 (0.00-0.68); EOSINOPHILS PERCENT AUTO 1 % (0-6); Hematocrit 32.5 % (33.0-51.0); Hemoglobin 10.3 g/dL (11.5-16.0); IMMATURE GRAN ABSOLUTE AUTO 0.03 K/mm3 (0.00-0.10); IMMATURE GRAN PERCENT AUTO 0 % (0-1); LYMPHOCYTES ABSOLUTE AUTO 0.67 K/mm3 (0.84-5.20); LYMPHOCYTES PERCENT AUTO 9 % (21-46); MONOCYTES ABSOLUTE AUTO 0.89 K/mm3 (0.16-1.47); MONOCYTES PERCENT AUTO 12 % (4-13); Mean Corpuscular HGB Conc 31.7 g/dL (31.5-36.5); Mean Corpuscular Volume 86 fL (80-100); NEUTROPHILS ABSOLUTE AUTO 5.82 K/mm3 (1.96-9.15); NEUTROPHILS PERCENT AUTO 78 % (41-73); NRBC ABSOLUTE 0.00 K/mm3 (0.00-0.02); NRBC Auto 0.0 /100 WBC (0.0-0.2); Platelet Count 124 K/mm3 (150-400); RDW Coefficient Variation 19.6 % (11.7-14.2); RDW Standard Deviation 61.4 fL (35.1-46.3)
[2025-05-19 09:34] LABS: Anion Gap 7.0 mmol/L (3-11); Blood Urea Nitrogen 26.0 mg/dL (8-24); CO2, Blood 33.0 mmol/L (21-32); Calcium, Blood 9.9 mg/dL (8.5-10.1); Chloride, Blood 95.0 mmol/L (98-108); Creatinine, Blood 0.65 mg/dL (0.40-1.00); Glucose, Blood 104.0 mg/dL (70-99); Potassium, Blood 3.0 mmol/L (3.5-5.5); Sodium, Blood 132.0 mmol/L (136-145)
[2025-05-19 16:31] VITALS: BP 119/96
--- NOTE | 2025-05-19 19:25 | NUR ---
SHIFT SUMMARY PT A&OX3. REPORTS NOT KNOWING MONTH DATE. PT ADMITTED DUE TO UTI/SEPSIS. POSITIVE FOR C-DIFF AND ESBL IN URINE ON CONTACT PRECAUTIONS. REPORTS NO PAIN/SOB/CHEST PAIN. VSS. PT ON 2L OF O2. SPO2 IS 97%. PT HAS PERWICK IN PLACE. PT TURNED Q2 HOURS FOR COMFORT AND SKIN BREAKDOWN. ANTIEMBOLIC STOCKINGS PLACED BY BREAK RN. PT RECEPTIVE TO CARE. PT TAKES MEDS WHOLE ONE AT A TIME WITH WATER. POTASSIUM 3.0 THIS AM, REPORTED TO DR. CHERRY. DR. CHERRY ORDERED ORAL POTASSIUM. PT HAS FLUID RESTRICTION ORDER OF 1,000 ML/24HOUR. PT IN BED, BED IN LOWEST POSITION, CALL LIGHT IN REACH. RAILS X 2.
[2025-05-20 04:45] VITALS: BP 138/99
[2025-05-20 07:22] VITALS: BP 134/114
[2025-05-20 09:08] LABS: BASOPHILS ABSOLUTE AUTO 0.04 K/mm3 (0.00-0.23); BASOPHILS PERCENT AUTO 1 % (0-2); EOSINOPHILS ABSOLUTE AUTO 0.02 K/mm3 (0.00-0.68); EOSINOPHILS PERCENT AUTO 0 % (0-6); Hematocrit 33.5 % (33.0-51.0); Hemoglobin 10.7 g/dL (11.5-16.0); IMMATURE GRAN ABSOLUTE AUTO 0.04 K/mm3 (0.00-0.10); IMMATURE GRAN PERCENT AUTO 1 % (0-1); LYMPHOCYTES ABSOLUTE AUTO 0.99 K/mm3 (0.84-5.20); LYMPHOCYTES PERCENT AUTO 12 % (21-46); MONOCYTES ABSOLUTE AUTO 1.08 K/mm3 (0.16-1.47); MONOCYTES PERCENT AUTO 13 % (4-13); Mean Corpuscular HGB Conc 31.9 g/dL (31.5-36.5); Mean Corpuscular Volume 86 fL (80-100); NEUTROPHILS ABSOLUTE AUTO 6.37 K/mm3 (1.96-9.15); NEUTROPHILS PERCENT AUTO 75 % (41-73); NRBC ABSOLUTE 0.00 K/mm3 (0.00-0.02); NRBC Auto 0.0 /100 WBC (0.0-0.2); Platelet Count 129 K/mm3 (150-400); RDW Coefficient Variation 19.6 % (11.7-14.2); RDW Standard Deviation 61.6 fL (35.1-46.3)
[2025-05-20 09:34] LABS: Anion Gap 9.0 mmol/L (3-11); Blood Urea Nitrogen 29.0 mg/dL (8-24); CO2, Blood 31.0 mmol/L (21-32); Calcium, Blood 9.9 mg/dL (8.5-10.1); Chloride, Blood 93.0 mmol/L (98-108); Creatinine, Blood 0.55 mg/dL (0.40-1.00); Glucose, Blood 113.0 mg/dL (70-99); Potassium, Blood 3.3 mmol/L (3.5-5.5); Sodium, Blood 130.0 mmol/L (136-145)
[2025-05-20 15:06] VITALS: BP 119/89
--- NOTE | 2025-05-20 19:26 | NUR ---
SHIFT SUMMARY PT A&OX3. REPORTS NOT KNOWING MONTH DATE. PT ADMITTED DUE TO UTI/SEPSIS. POSITIVE FOR C-DIFF AND ESBL IN URINE ON CONTACT PRECAUTIONS. REPORTS NO PAIN/SOB/CHEST PAIN. VSS. PT ON 2L OF O2. SPO2 IS 97%. PT HAS PERWICK IN PLACE. PT TURNED Q2 HOURS FOR COMFORT AND SKIN BREAKDOWN. ANTIEMBOLIC STOCKINGS PLACED BY BREAK RN. PT RECEPTIVE TO CARE. PT TAKES MEDS WHOLE ONE AT A TIME WITH WATER. POTASSIUM 3.3 THIS AM, REPORTED TO DR. CHERRY. DR. CHERRY ORDERED ORAL POTASSIUM. PT HAS FLUID RESTRICTION ORDER OF 1,000 ML/24HOUR. DR. CHERRY ORDERED SPEECH EVAL DUE TO PT COUGHS AFTER EATING. PHYSICAL THERAPY WORKED WITH PT TODAY, REPORTED "PT IS TOTAL CARE, Q2 TURNED." PT IN BED, BED IN LOWEST POSITION, CALL LIGHT IN REACH. RAILS X 2. CORRINE HOSE ON.
[2025-05-20 20:53] VITALS: BP 129/97
[2025-05-21 04:55] VITALS: BP 132/102
[2025-05-21 05:36] LABS: BASOPHILS ABSOLUTE AUTO 0.03 K/mm3 (0.00-0.23); BASOPHILS PERCENT AUTO 0 % (0-2); EOSINOPHILS ABSOLUTE AUTO 0.08 K/mm3 (0.00-0.68); EOSINOPHILS PERCENT AUTO 1 % (0-6); Hematocrit 33.3 % (33.0-51.0); Hemoglobin 10.6 g/dL (11.5-16.0); IMMATURE GRAN ABSOLUTE AUTO 0.07 K/mm3 (0.00-0.10); IMMATURE GRAN PERCENT AUTO 1 % (0-1); LYMPHOCYTES ABSOLUTE AUTO 0.89 K/mm3 (0.84-5.20); LYMPHOCYTES PERCENT AUTO 10 % (21-46); MONOCYTES ABSOLUTE AUTO 1.16 K/mm3 (0.16-1.47); MONOCYTES PERCENT AUTO 13 % (4-13); Mean Corpuscular HGB Conc 31.8 g/dL (31.5-36.5); Mean Corpuscular Volume 86 fL (80-100); NEUTROPHILS ABSOLUTE AUTO 6.45 K/mm3 (1.96-9.15); NEUTROPHILS PERCENT AUTO 74 % (41-73); NRBC ABSOLUTE 0.00 K/mm3 (0.00-0.02); NRBC Auto 0.0 /100 WBC (0.0-0.2); Platelet Count 129 K/mm3 (150-400); RDW Coefficient Variation 19.7 % (11.7-14.2); RDW Standard Deviation 62.3 fL (35.1-46.3)
[2025-05-21 06:15] LABS: Anion Gap 8.0 mmol/L (3-11); Blood Urea Nitrogen 34.0 mg/dL (8-24); CO2, Blood 32.0 mmol/L (21-32); Calcium, Blood 10.1 mg/dL (8.5-10.1); Chloride, Blood 96.0 mmol/L (98-108); Creatinine, Blood 0.73 mg/dL (0.40-1.00); Glucose, Blood 132.0 mg/dL (70-99); Potassium, Blood 4.2 mmol/L (3.5-5.5); Sodium, Blood 132.0 mmol/L (136-145)
--- NOTE | 2025-05-21 06:44 | NUR ---
PATIENT WAKE ON AND OFF LAST NIGHT. OCCASIONALLY CONFUSED. EAISLY REDIRECTABLE. ONE BM, PUREWICK CHANGED. PILLS WITH APPLESAUSE PENDING SWALLOW EVAL. DENIES PAIN. LOWER EXTREMITY EDEMA 3+ SCD WERE CUTTING INTO SKIN SO REMOVED AND USING JAREN BANDAGE FOR COMPRESSION. HEALS FLOATED.
[2025-05-21 07:42] VITALS: BP 154/96
--- NOTE | 2025-05-21 18:44 | NUR ---
DAY SUMMARY PT A&OX2, LETHARGIC T/O THE DAY, DECLINED BREAKFAST & LUNCH, IS AWAKE EATING DINNER NOW; VS STABLE, DENIES PAIN, 1 BM THIS SHIFT, WILL CONT TO MONITOR.
[2025-05-21 20:20] VITALS: BP 137/94
--- NOTE | 2025-05-22 05:02 | NUR ---
SHIFT SUMMARY PT ALERT ORIENTED WITH INTERMITTENT CONFUSION. REMAINS VERY LETHARGIC AND PREFERS TO SLEEP MOST OF THE TIME. WILL WAKE UP AND ANSWER QUESTIONS THEN DRIFT BACK OFF TO SLEEP. REMAINS ON A 1 LITER FLUID RESTRICTION WITH STRICT I&O AND DAILY WEIGHTS. REMAINS ON BEDREST R/T WEAKNESS AND REFUSING TO GET OUT OF BED. CONTINUES ON CONTACT ISOLATION R/T CDIFF AND ESBL IN URINE. PUREWICK INTACT DRAINING DARK YELLOW URINE. REMAINS ON VANCO PO Q 6HR FOR CDIFF. CONTINUES ON 2L VIA NC SATTING AT 96%. KEPT TURNED AND REPOSITIONED Q2HR. RESTING IN BED AT THIS TIME WITH CALL LIGHT IN REACH
[2025-05-22 05:32] VITALS: BP 126/99
[2025-05-22 07:51] VITALS: BP 136/89
[2025-05-22 09:11] LABS: BASOPHILS ABSOLUTE AUTO 0.02 K/mm3 (0.00-0.23); BASOPHILS PERCENT AUTO 0 % (0-2); EOSINOPHILS ABSOLUTE AUTO 0.09 K/mm3 (0.00-0.68); EOSINOPHILS PERCENT AUTO 1 % (0-6); Hematocrit 34.4 % (33.0-51.0); Hemoglobin 10.8 g/dL (11.5-16.0); IMMATURE GRAN ABSOLUTE AUTO 0.08 K/mm3 (0.00-0.10); IMMATURE GRAN PERCENT AUTO 1 % (0-1); LYMPHOCYTES ABSOLUTE AUTO 0.87 K/mm3 (0.84-5.20); LYMPHOCYTES PERCENT AUTO 11 % (21-46); MONOCYTES ABSOLUTE AUTO 1.01 K/mm3 (0.16-1.47); MONOCYTES PERCENT AUTO 13 % (4-13); Mean Corpuscular HGB Conc 31.4 g/dL (31.5-36.5); Mean Corpuscular Volume 88 fL (80-100); NEUTROPHILS ABSOLUTE AUTO 5.63 K/mm3 (1.96-9.15); NEUTROPHILS PERCENT AUTO 73 % (41-73); NRBC ABSOLUTE 0.00 K/mm3 (0.00-0.02); NRBC Auto 0.0 /100 WBC (0.0-0.2); Platelet Count 142 K/mm3 (150-400); RDW Coefficient Variation 19.8 % (11.7-14.2); RDW Standard Deviation 62.6 fL (35.1-46.3)
[2025-05-22 09:37] LABS: Alanine Aminotransfer (ALT/SGP 33.0 U/L (12-78); Albumin, Blood 3.2 g/dL (3.4-5.0); Albumin/Globulin Ratio 0.9 (0.8-1.8); Anion Gap 7.0 mmol/L (3-11); Aspartate Aminotrans (AST/SGOT 41.0 U/L (12-37); Bilirubin, Total 1.2 mg/dL (0.1-1.0); Blood Urea Nitrogen 34.0 mg/dL (8-24); CO2, Blood 32.0 mmol/L (21-32); Calcium, Blood 9.7 mg/dL (8.5-10.1); Chloride, Blood 97.0 mmol/L (98-108); Creatinine, Blood 0.73 mg/dL (0.40-1.00); Globulin, Blood 3.4 g/dL (2.2-4.0); Glucose, Blood 114.0 mg/dL (70-99); Phosphorus, Blood 3.5 mg/dL (2.5-4.9); Potassium, Blood 4.0 mmol/L (3.5-5.5); Sodium, Blood 132.0 mmol/L (136-145); Thyroid Stimulating Hormone 4.76 uIU/mL (0.360-4.800); Total Protein, Blood 6.6 g/dL (6.4-8.2)
[2025-05-22] MEDS ORDERED: METO25 PO (10:52)
[2025-05-22] MEDS ORDERED: DILT120 PO (10:53)
[2025-05-22] MEDS ORDERED: INSULIN LI100 UNIT/6 SC (10:56)
[2025-05-22] MEDS ORDERED: SPIR25 PO (10:58)
[2025-05-22] MEDS ORDERED: MICONAZOLE NITR85 GM TOP (10:58)
[2025-05-22] MEDS ORDERED: VANCOCIN HCL125 MG PO (10:59)
[2025-05-22] MEDS ORDERED: VISBIOME 112.51 EACH PO (11:02)
--- NOTE | 2025-05-22 15:29 | NUR ---
DISCHARGE NO ACUTE CHANGES THIS SHIFT, REFUSED PT & OT, VERY HEAVY 2P ASSIST INTO W/C FOR DISCHARGE VIA TRANSPORT, IV REMOVED, ALL BELONGINGS SENT W/PT, TRANSPORTED ON 2L VIA PR @ [id number]. REPORT CALLED TO [facility] @ 2854.
== END 2025-05-22 15:20 | DRG 291 ==
LOC: ER 08:15 → MEDS 08:16
PROVIDERS: Hospitalist; Internal Medicine; Physician Assistant; Student in an Organized Health Care Education/Training Program; ADMIT Family Medicine
DX: I11.0 Hypertensive heart disease with heart failure (principal); I50.23 Acute on chronic systolic (congestive) heart failure; N39.0 Urinary tract infection, site not specified; Z16.12 Extended spectrum beta lactamase (ESBL) resistance; A04.72 Enterocolitis due to Clostridium difficile, not specified as recurrent; Z16.19 Resistance to other specified beta lactam antibiotics; J96.11 Chronic respiratory failure with hypoxia; E87.1 Hypo-osmolality and hyponatremia; N17.9 Acute kidney failure, unspecified; I48.20 Chronic atrial fibrillation, unspecified; B96.20 Unspecified Escherichia coli [E. coli] as the cause of diseases classified elsewhere; J44.9 Chronic obstructive pulmonary disease, unspecified; E66.01 Morbid (severe) obesity due to excess calories; E78.5 Hyperlipidemia, unspecified; G47.33 Obstructive sleep apnea (adult) (pediatric); F41.8 Other specified anxiety disorders; E11.42 Type 2 diabetes mellitus with diabetic polyneuropathy; E11.319 Type 2 diabetes mellitus with unspecified diabetic retinopathy without macular edema; E03.9 Hypothyroidism, unspecified; M10.9 Gout, unspecified; E88.09 Other disorders of plasma-protein metabolism, not elsewhere classified; D69.6 Thrombocytopenia, unspecified; E87.6 Hypokalemia; R21 Rash and other nonspecific skin eruption; R04.0 Epistaxis; Z96.651 Presence of right artificial knee joint; Z79.890 Hormone replacement therapy; Z99.81 Dependence on supplemental oxygen; Z79.01 Long term (current) use of anticoagulants; Z79.51 Long term (current) use of inhaled steroids; Z87.891 Personal history of nicotine dependence; Z68.34 Body mass index [BMI] 34.0-34.9, adult; Z79.84 Long term (current) use of oral hypoglycemic drugs
CPT/HCPCS: 36415; 51701; 71046; 80048; 80053; 81001; 82947; 83605; 83735; 83880; 84100; 84145; 84443; 85025; 85651; 86140; 87077; 87086; 87186; 87324; 87493; 92610; 94640; 94664; 94760; 96365; 96366; 96367; 96375; 96376; 97110; 97162; 97165; 97530; 97535; 99284-25; A9270; G0378; J0694; J0696; J1650; J1938; J2543; J3010; J3475; J7050; P9047

== ENCOUNTER 2025-05-31 12:28 | Emergency (ER) | payer MEDICARE, OTHER ==
[~2025-05-31] VITALS: Ht 162.6 cm; Wt 72.1 kg
[~2025-05-31 12:28] MED LIST changes: +ACET325 PO; +DILT120 PO; +INSULIN LI100 UNIT/6 SC; +METO25 PO; +MICONAZOLE NITR85 GM TOP; +SPIR25 PO; +VANCOCIN HCL125 MG PO; +VISBIOME 112.51 EACH PO
[2025-05-31 12:44] VITALS: BP 131/79
[2025-05-31] MEDS ORDERED: Oxymetazoline 0.05% Nasal Relief Spray 15mL BTL ONE (14:00)
[2025-05-31] MEDS ORDERED: Tranexamic Acid 100 ML IV ONE (15:15)
[2025-05-31] MEDS ORDERED: Tranexamic Acid 1000 MG/10 ML 10ML Vial (SDV) ONE (15:30)
== END 2025-05-31 17:30 | disposition home or self-care (01) ==
LOC: ER 12:28
DX: R04.0 Epistaxis (principal); E78.5 Hyperlipidemia, unspecified; E11.9 Type 2 diabetes mellitus without complications; I11.0 Hypertensive heart disease with heart failure; I48.91 Unspecified atrial fibrillation; I50.20 Unspecified systolic (congestive) heart failure; Z88.8 Allergy status to other drugs, medicaments and biological substances; Z79.2 Long term (current) use of antibiotics; Z79.899 Other long term (current) drug therapy; Z79.01 Long term (current) use of anticoagulants
CPT/HCPCS: 30901; 99283-25; A9270

== ENCOUNTER → 2025-06-21 | Outpatient (CLI) | payer MEDICARE, OTHER ==
[2025-06-21 15:19] LABS: Campylobacter Sp Not Detected (NOT DETECT); E. Coli O157 Not Detected (NOT DETECT); Enteroaggregative E. coli-EAEC Not Detected (NOT DETECT); Enteropathogenic E. coli-EPEC Not Detected (NOT DETECT); Enterotoxigenic E. coli-ETEC Not Detected (NOT DETECT); Salmonella Sp Not Detected (NOT DETECT); Shiga Toxin-prod E. coli-STEC Not Detected (NOT DETECT); Shigella/Enteroin E. coli-EIEC Not Detected (NOT DETECT); Vibrio Sp Not Detected (NOT DETECT)
== END ==
LOC: LAB SHORT 11:56 → LAB 11:56
PROVIDERS: Family Medicine
DX: A09 Infectious gastroenteritis and colitis, unspecified (principal)
CPT/HCPCS: 87324; 87507